=== PATIENT | female | born 1970 | race Caucasian/White ===

== ENCOUNTER → 2016-07-18 | Outpatient (CLI) | payer MEDICARE, MEDICAID ==
[~2016-07-18] VITALS: Ht 167.6 cm; Wt 93.0 kg
[~2016-07-18] MED LIST: ALBUTEROL0.09 MG/A1 IH; AMITRIPTYLINE H75 M1 PO; AMITRIPTYLINE100 MG PO; ATARAX50 MG PO; CALAN120 MG PO; CARNITINE250 MG PO; CENTRUM1 TAB PO; CLARITIN 1010 MG/TAB PO; CLONAZEPAM1 MG PO; COLACE 100100 MG/CAP PO; COMBIVENT INH14.7 GM IH; CRESTOR 10MG10 MG PO; CYMBALTA; DARVOCET N; DESYREL 50MG50 MG PO; DILAUDID 4MG TAB4 MG PO; DULERA1 AR1 IH; DULERA1 ARO IH; EFFEXOR-XR150 MG PO; ELAVIL100 MG PO; EPA FISH OIL1000 MG PO; ESCITALOPRAM; ESTROGENS0.3 MG PO; ESTROVEN; ETHOSUXIMIDE PO; ETHOSUXIMIDE250 MG PO; FLEXERIL; GINGER ROOT EX250 MG PO; GLUCOPHAGE500 MG/TAB PO; HUMALOG100 U/ML SC; HUMALOG100 U/ML SQ; HYDROCODONE/APAP; HYDROMORPHONE HY8 MG; IMITREX ST6 MG/0.5 M SC; IMITREX100 MG PO; INDERAL 20MG20 MG PO; KLONOPIN 1MG1 MG PO; KLONOPIN1 MG PO; LAMICTAL; LAMICTAL150 MG PO; LAMOTRIGINE150 MG PO; LEVEMIR SQ; LEVEMIR100 U/ML SC; LEVEMIR100 U/ML SQ; LIPITOR 40MG TA40 MG PO; LOPID 600M600 MG/TAB PO; LORTAB 7.5/5001 TAB PO; MASON NATURAL500 MG PO; MELOXICAM; MOBIC 7.5MG7.5 MG PO; MORPHINE ER; MS CONTIN100 MG PO; MULTIPLE VITAMI1 CAP PO; MULTIPLE VITAMI1 TAB PO; NATURAL E400 IU PO; NATURE'S BLE1000 MCG PO; NORCO 325 MG-51 TAB PO; NORCOELIX PO; NORTRIPTYLINE25 M1 PO; NOVLOG SC; NOVLOG SQ; PERCOCET 650 MG1 TAB PO; PHENERGAN 25 TA25 MG; PHENERGAN 25 TA25 MG PO; PHENERGAN W/CO120 ML PO; PHENERGAN25 MG RC; PREMARIN 0.60.625 MG PO; PRIL40 PO; PROAIR HFA0.09 MG/AC IH; PROCHLORPERAZIN10 MG PO; PROPOXYPHENE HC65 MG PO; PROPRANOLOL HCL40 MG PO; PROVENTIL0.09 MG/A1 IH; REGLAN 10MG10 MG/TAB PO; REMERON 15M15 MG/TA1 PO; SEROQUEL25 MG PO; SINGULAIR 110 MG/TAB PO; TORADOL 10MG TA10 MG PO; TRICOR145 MG PO; VERAPAMIL 440 MG/TAB PO; VERELAN120 MG PO; VITAMIN D 50,1.25 MG PO; WELLBUTRIN XL150 MG PO; XANAX0.25 MG PO; ZANAFLEX 4MG TAB4 MG PO; ZITHROMAX Z PA250 MG PO; ZOFRAN 4MG T4 MG/TAB PO; ZOFRAN4 MG PO; ZOFRAN8 MG PO; [UNRECOGNIZED DRUG - OTHER] PO
[2016-07-18 13:59] VITALS: BP 122/80; PULSE 86
[2016-07-18 14:57] VITALS: BP 122/80; PULSE 86
== END ==
LOC: LIGHT 10-27 15:03
DX: Z98.84 Bariatric surgery status (principal); E11.65 Type 2 diabetes mellitus with hyperglycemia; E66.8 Other obesity; Z68.31 Body mass index [BMI] 31.0-31.9, adult

== ENCOUNTER → 2016-08-30 | Outpatient (CLI) | payer MEDICARE, MEDICAID ==
[~2016-08-30] VITALS: Ht 167.6 cm; Wt 92.3 kg
[2016-08-30 14:00] VITALS: BP 117/63; PULSE 85
== END ==
LOC: LIGHT 13:37
DX: Z98.84 Bariatric surgery status (principal); Z68.32 Body mass index [BMI] 32.0-32.9, adult

== ENCOUNTER → 2016-09-27 | Outpatient (CLI) | payer MEDICARE, MEDICAID ==
[~2016-09-27] VITALS: Ht 167.6 cm; Wt 92.1 kg
[2016-09-27 13:02] VITALS: BP 116/64; PULSE 92
== END ==
LOC: LIGHT 13:00
DX: Z98.84 Bariatric surgery status (principal); Z68.32 Body mass index [BMI] 32.0-32.9, adult; E11.9 Type 2 diabetes mellitus without complications

== ENCOUNTER → 2016-11-01 | Outpatient (CLI) | payer MEDICARE, MEDICAID ==
[~2016-11-01] VITALS: Ht 167.6 cm; Wt 90.7 kg
[2016-11-01 12:59] VITALS: BP 109/67; PULSE 89
== END ==
LOC: LIGHT 09:44
DX: Z98.84 Bariatric surgery status (principal)

== ENCOUNTER → 2016-11-11 | Outpatient (CLI) | payer MEDICARE, MEDICAID | LOC: BHSO 15:30 | DX: F31.73 Bipolar disorder, in partial remission, most recent episode manic (principal) ==

== ENCOUNTER → 2017-01-13 | Outpatient (CLI) | payer MEDICARE, MEDICAID | LOC: MC.RAD 10:18 | DX: N63 Unspecified lump in breast (principal) ==

== ENCOUNTER → 2017-04-03 | Outpatient (CLI) | payer MEDICARE, MEDICAID | LOC: COL.PUL 11:04 | DX: J45.909 Unspecified asthma, uncomplicated (principal); Z87.891 Personal history of nicotine dependence ==

== ENCOUNTER → 2017-05-26 | Outpatient (CLI) | payer MEDICARE, MEDICAID | LOC: BHSO 14:57 | DX: F31.73 Bipolar disorder, in partial remission, most recent episode manic (principal) ==

== ENCOUNTER → 2017-07-21 | Outpatient (CLI) | payer MEDICARE, MEDICAID | LOC: BHSO 14:31 | DX: F31.73 Bipolar disorder, in partial remission, most recent episode manic (principal) | CPT/HCPCS: G0463 ==

== ENCOUNTER → 2017-12-08 | Outpatient (CLI) | payer MEDICARE, MEDICAID | LOC: BHSO 15:16 | DX: F31.81 Bipolar II disorder (principal) | CPT/HCPCS: G0463 ==

== ENCOUNTER → 2018-02-06 | Outpatient (CLI) | payer MEDICARE, MEDICAID | LOC: BHSO 11:19 | DX: F31.81 Bipolar II disorder (principal) | CPT/HCPCS: G0463 ==

== ENCOUNTER → 2018-05-01 | Outpatient (CLI) | payer MEDICARE, MEDICAID | LOC: BHSO 11:18 | DX: F43.10 Post-traumatic stress disorder, unspecified (principal) | CPT/HCPCS: G0463 ==

== ENCOUNTER 2018-05-06 12:24 | Emergency (ER) | payer MEDICARE, MEDICAID ==
[2005-06-07 16:18] VITALS: BP 158/85
[~2018-05-06] VITALS: Ht 167.6 cm; Wt 91.4 kg
[2018-05-06 12:34] VITALS: TEMP 97.9
[2018-05-06 13:20] LABS: BASO % 0.3 % (0.0-2.0); EOS # 0.2 (0.0-0.7); EOS % 1.9 % (0-4.0); GRAN # 6.6 (1.4-6.5); GRAN % 66.3 % (42.2-75.2); HEMATOCRIT 42.2 % (37.0-47.0); HEMOGLOBIN 14.5 g/dl (12.5-16.0); LYMPH # 2.6 (1.2-3.4); LYMPH % 25.7 % (20.0-51.0); MEAN CELL VOLUME 89 fl (80.0-100.0); MEAN CORPUSCULAR HEMOGLOBIN 31 pg (27.0-31.0); MEAN CORPUSCULAR HGB CONC 34 g/dl (33.0-37.0); MEAN PLATELET VOLUME 10.8 fl (7.4-10.4); MONO # 0.5 (0.1-0.6); MONO % 5.3 % (1.7-9.3); PLATELET COUNT 310 K/mm3 (130-400); RED BLOOD COUNT 4.76 M/mm3 (4.10-5.30); REDCELL DISTRIBUTION WIDTH-CV 11.8 % (11.5-14.5)
[2018-05-06 13:31] LABS: ALBUMIN 4.4 gm/dL (3.5-5.0); BILIRUBIN,TOTAL 0.3 mg/dL (0.0-1.0); CALCIUM 9.7 mg/dL (8.4-10.2); CREATININE, serum 0.51 mg/dL (0.52-1.25); POTASSIUM 4.3 mmol/L (3.4-5.0); TOTAL PROTEIN 7.6 gm/dL (6.4-8.2)
[2018-05-06] MEDS ORDERED: CARAFATE 1GM1 G PO (14:33)
[2018-05-06 16:09] VITALS: BP 120/84; PULSE 88
== END 2018-05-06 16:20 | disposition home or self-care (01) ==
LOC: COL.ER 12:24
PROVIDERS: Emergency Medicine
DX: R11.2 Nausea with vomiting, unspecified (principal); R10.9 Unspecified abdominal pain
CPT/HCPCS: C9113; J1630; J2550; J3010; J7030; Q9967

== ENCOUNTER 2018-05-16 09:53 | Day surgery (SDC) | payer MEDICARE, MEDICAID ==
[2005-06-07 16:18] VITALS: BP 158/85
[~2018-05-16] VITALS: Ht 167.6 cm; Wt 94.8 kg
[~2018-05-16 09:53] MED LIST changes: +CARAFATE 1GM1 G PO
[2018-05-16 10:45] VITALS: BP 115/84; PULSE 88; TEMP 97.4
[2018-05-16] MEDS ORDERED: BIOTIN10000 MC1 PO (10:52)
[2018-05-16] MEDS ORDERED: CARAFATE 1GM1 G PO (11:00)
[2018-05-16] MEDS ORDERED: CALAN80 MG PO (11:01)
[2018-05-16] MEDS ORDERED: FIORICET 325 MG1 TA1 PO (11:01)
[2018-05-16 12:00] VITALS: BP 115/81; PULSE 89; TEMP 97.5
[2018-05-16 12:15] VITALS: BP 114/80; PULSE 84
[2018-05-16 12:30] VITALS: BP 103/84; PULSE 91
== END 2018-05-16 12:40 | disposition home or self-care (01) ==
LOC: SDCO 09:53
DX: K25.9 Gastric ulcer, unspecified as acute or chronic, without hemorrhage or perforation (principal); Z98.84 Bariatric surgery status; I10 Essential (primary) hypertension; E78.5 Hyperlipidemia, unspecified; G47.00 Insomnia, unspecified; F41.9 Anxiety disorder, unspecified; F43.10 Post-traumatic stress disorder, unspecified; R73.03 Prediabetes; F31.9 Bipolar disorder, unspecified; F32.9 Major depressive disorder, single episode, unspecified; G43.909 Migraine, unspecified, not intractable, without status migrainosus
CPT/HCPCS: J2704

== ENCOUNTER → 2018-05-31 | Outpatient (CLI) | payer MEDICARE, MEDICAID ==
[~2018-05-31] MED LIST changes: +BIOTIN10000 MC1 PO; +CALAN80 MG PO; +FIORICET 325 MG1 TA1 PO
== END ==
LOC: MC.RAD 10:54
DX: Z12.31 Encounter for screening mammogram for malignant neoplasm of breast (principal)

== ENCOUNTER → 2018-11-09 | Outpatient (CLI) | payer MEDICARE, MEDICAID | LOC: BHSO 11:20 | DX: F43.10 Post-traumatic stress disorder, unspecified (principal) | CPT/HCPCS: G0463 ==

== ENCOUNTER 2019-06-29 18:28 | Emergency (ER) | payer MEDICARE, MEDICAID ==
[2005-06-07 16:18] VITALS: BP 158/85
[~2019-06-29] VITALS: Ht 165.1 cm; Wt 97.7 kg
[2019-06-29 18:38] VITALS: BP 108/71; TEMP 97.9
[2019-06-29 19:22] LABS: BASO % 0.3 % (0.0-2.0); EOS # 0.1 (0.0-0.7); EOS % 0.6 % (0-4.0); GRAN # 8.6 (1.4-6.5); GRAN % 74.4 % (42.2-75.2); HEMATOCRIT 40.2 % (37.0-47.0); HEMOGLOBIN 12.7 g/dl (12.5-16.0); LYMPH # 2.3 (1.2-3.4); LYMPH % 20.2 % (20.0-51.0); MEAN CELL VOLUME 86 fl (80.0-100.0); MEAN CORPUSCULAR HEMOGLOBIN 27 pg (27.0-31.0); MEAN CORPUSCULAR HGB CONC 32 g/dl (33.0-37.0); MEAN PLATELET VOLUME 10.4 fl (7.4-10.4); MONO # 0.5 (0.1-0.6); MONO % 4.1 % (1.7-9.3); PLATELET COUNT 293 K/mm3 (130-400); RED BLOOD COUNT 4.67 M/mm3 (4.10-5.30); REDCELL DISTRIBUTION WIDTH-CV 15.1 % (11.5-14.5)
[2019-06-29 19:34] LABS: ALBUMIN 4.7 gm/dL (3.5-5.0); BILIRUBIN,TOTAL 0.2 mg/dL (0.0-1.0); CALCIUM 9.9 mg/dL (8.4-10.2); CREATININE, serum 0.78 (0.52-1.25); POTASSIUM 4.6 mmol/L (3.4-5.0); TOTAL PROTEIN 8.3 gm/dL (6.4-8.2)
[2019-06-29 20:49] LABS: COLLECTION METHOD CLEAN CATCH
[2019-06-29 21:01] LABS: PH 6 (5-8); URINE APPEARANCE Hazy; URINE BACTERIA Rare /hpf; URINE BILIRUBIN Negative (NEGATIVE); URINE BLOOD Negative (NEGATIVE); URINE COLOR Yellow; URINE GLUCOSE Negative (NEGATIVE); URINE KETONE Negative (NEGATIVE); URINE LEUKOCYTE ESTERASE Trace (NEGATIVE); URINE NITRATE Negative (NEGATIVE); URINE PROTEIN(semi-quant) Negative (NEGATIVE); URINE RBC 0-2 /hpf; URINE UROBILINOGEN Negative (NEGATIVE)
[2019-06-29 22:35] VITALS: PULSE 80
[2019-06-29] MEDS ORDERED: COMPAZINE 110 MG/TAB PO (22:37)
== END 2019-06-29 22:43 | disposition home or self-care (01) ==
LOC: COL.ER 18:28
PROVIDERS: Emergency Medicine
DX: G43.909 Migraine, unspecified, not intractable, without status migrainosus (principal); N39.0 Urinary tract infection, site not specified; G31.84 Mild cognitive impairment of uncertain or unknown etiology; G40.909 Epilepsy, unspecified, not intractable, without status epilepticus; Z87.891 Personal history of nicotine dependence
CPT/HCPCS: J0780; J1200; J1630; J2550; J3475; J7030

== ENCOUNTER 2019-12-08 18:12 | Inpatient (IN) | payer MEDICARE, MEDICAID ==
[~2019-12-08] VITALS: Ht 165.1 cm; Wt 88.4 kg
[~2019-12-08 18:12] MED LIST changes: +COMPAZINE 110 MG/TAB PO
[2019-12-08 19:13] LABS: HEMOGLOBIN 10.8 g/dl (12.5-16.0); MEAN CELL VOLUME 84 fl (80.0-100.0); MEAN CORPUSCULAR HEMOGLOBIN 26 pg (27.0-31.0); MEAN CORPUSCULAR HGB CONC 31 g/dl (33.0-37.0); MEAN PLATELET VOLUME 10.6 fl (7.4-10.4); PLATELET COUNT 227 K/mm3 (130-400); RED BLOOD COUNT 4.19 M/mm3 (4.10-5.30); REDCELL DISTRIBUTION WIDTH-CV 15.7 % (11.5-14.5)
[2019-12-08 19:16] LABS: HEMATOCRIT 35.1 % (37.0-47.0)
[2019-12-08 19:28] LABS: ALBUMIN 3.6 gm/dL (3.5-5.0); BILIRUBIN,TOTAL 0.7 mg/dL (0.0-1.0); CALCIUM 9.1 mg/dL (8.4-10.2); CREATININE, serum 0.66 (0.52-1.25); POTASSIUM 3.9 mmol/L (3.4-5.0); TOTAL PROTEIN 6.9 gm/dL (6.4-8.2)
[2019-12-08 19:32] LABS: BAND 11 % (0-10); LYMPHOCYTE 3 % (20.0-51.0); NEUTROPHILS 85 % (42.0-75.2); PLATELET ESTIMATE NORMAL (NORMAL)
[2019-12-08 19:33] LABS: ANISOCYTOSIS 1+
[2019-12-08] MEDS ORDERED: TESSALON P100 MG/CAP PO (20:35)
[2019-12-08] MEDS ORDERED: ROBITUSSIN A-C S1 M1 PO (20:36)
[2019-12-08] MEDS ORDERED: ESTRACE2 MG PO (20:38)
[2019-12-08] MEDS ORDERED: HALDOL 5MG T5 MG/TAB (20:39)
[2019-12-08] MEDS ORDERED: ATARAX50 MG PO (20:40)
[2019-12-08] MEDS ORDERED: NAMENDA 10MG TA10 MG PO (20:42)
[2019-12-08] MEDS ORDERED: SINGULAIR 110 MG/TAB (20:42)
[2019-12-08] MEDS ORDERED: MINIPRESS2 MG PO (20:44)
[2019-12-08 21:12] LABS: COLLECTION METHOD CLEAN CATCH
[2019-12-08 21:22] LABS: PH 6 (5-8); SQUAMOUS EPITHELIAL 0-2 /hpf; URINE APPEARANCE Clear; URINE BACTERIA Rare /hpf; URINE BILIRUBIN Negative (NEGATIVE); URINE BLOOD Negative (NEGATIVE); URINE COLOR Straw; URINE GLUCOSE Negative (NEGATIVE); URINE KETONE Negative (NEGATIVE); URINE LEUKOCYTE ESTERASE Negative (NEGATIVE); URINE NITRATE Negative (NEGATIVE); URINE PROTEIN(semi-quant) Negative (NEGATIVE); URINE RBC 0-2 /hpf; URINE UROBILINOGEN Negative (NEGATIVE)
[2019-12-08 21:50] LABS: INR 1.1 (0.8-3.0); PROTHROMBIN TIME 12.4 SECONDS (9.7-12.8)
[2019-12-08 21:57] LABS: C-REACTIVE PROTEIN 7.5 mg/dL (0.0-0.9); CREATINE KINASE 57 U/L (30-135); LACTATE DEHYDROGENASE 1038 U/L (313-618); MAGNESIUM 1.7 mg/dL (1.6-2.3)
[2019-12-08 22:08] LABS: TROPONIN-I < 0.012 ng/mL (0.000-0.035)
[2019-12-08] MEDS ORDERED: SENNA-LAX8.6 MG PO (23:06)
[2019-12-08 23:25] VITALS: BP 128/85; PULSE 120; TEMP 98.8
--- NOTE | 2019-12-08 23:30 | NUR ---
Arrived to the unit via stretcher; alert and oriented. Reporting some shortness of breath, but in no distress. Able to ambulate to toilet with stand by assist only. Will continue to monitor.
[2019-12-09] VITALS (936 sets, daily range): BP systolic 104–138; BP diastolic 75–90; PULSE 97–134; TEMP 97.7–98.8; O2SAT 65–100
[2019-12-09] MEDS ORDERED: AMBIEN 10MG10 MG PO
[2019-12-09] MEDS ORDERED: EFFEXOR-XR150 MG PO (00:02)
[2019-12-09] MEDS ORDERED: VRAYLAR1.5 MG PO (00:34)
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
[2019-12-09 01:40] LABS: ARTERIAL BLD GAS O2 SATURATION 95.8 % (92-100); ARTERIAL BLD GAS TCO2 CT 28.1; ARTERIAL BLOOD GAS BASE EXCESS 2.2 (-2-2); ARTERIAL BLOOD GAS HCO3 26.8 meq/L (22-26); ARTERIAL BLOOD GAS PCO2 41.5 mmHg (35-45); ARTERIAL BLOOD GAS PO2 78.5 mmHg (80-100); ARTERIAL BLOOD GAS pH 7.43 (7.35-7.45)
--- NOTE | 2019-12-09 01:45 | NUR ---
Patient left unit for chest CT; attached to all monitors. Tolerated procedure well.
--- NOTE | 2019-12-09 02:36 | NUR ---
Updated hospitalist on patient status. Reported increasing 02 to 8L HF. Rikylty 90-92%. Patient tachycardic at 115, however, patient reported to this nurse that she is chronically tachycardic in the 120's. Patient reports that she is in no distress and appears comfortable in bed. Will continue to monitor.
[2019-12-09] MEDS ORDERED: RIOMET500 MG/5 M PO (03:47)
[2019-12-09] MEDS ORDERED: PHENERGAN 25 TA25 MG PO (03:48)
[2019-12-09] MEDS ORDERED: LYRICA 100MG C100 M1 PO (03:49)
--- NOTE | 2019-12-09 05:03 | NUR ---
Entered room to check on patient; reports feeling ok. No increase of shortness of breath and in no distress. Just reports that she "can't stop coughing. Has prn cough lozenges ordered.
[2019-12-09 05:15] LABS: BASO % 0.2 % (0.0-2.0); EOS # 0.1 (0.0-0.7); EOS % 0.5 % (0-4.0); GRAN # 9.9 (1.4-6.5); GRAN % 88.5 % (42.2-75.2); HEMOGLOBIN 10.1 g/dl (12.5-16.0); LYMPH # 0.9 (1.2-3.4); LYMPH % 7.6 % (20.0-51.0); MEAN CELL VOLUME 85 fl (80.0-100.0); MEAN CORPUSCULAR HEMOGLOBIN 26 pg (27.0-31.0); MEAN CORPUSCULAR HGB CONC 30 g/dl (33.0-37.0); MEAN PLATELET VOLUME 10.9 fl (7.4-10.4); MONO # 0.3 (0.1-0.6); MONO % 2.5 % (1.7-9.3); PLATELET COUNT 211 K/mm3 (130-400); RED BLOOD COUNT 3.96 M/mm3 (4.10-5.30); REDCELL DISTRIBUTION WIDTH-CV 15.8 % (11.5-14.5)
[2019-12-09 05:22] LABS: HEMATOCRIT 33.5 % (37.0-47.0)
[2019-12-09 05:25] LABS: ALBUMIN 3.2 gm/dL (3.5-5.0); BILIRUBIN,TOTAL 0.5 mg/dL (0.0-1.0); CALCIUM 8.5 mg/dL (8.4-10.2); CREATININE, serum 0.5 (0.52-1.25); POTASSIUM 4.2 mmol/L (3.4-5.0); TOTAL PROTEIN 6.3 gm/dL (6.4-8.2)
--- NOTE | 2019-12-09 07:20 | NUR ---
Report received from BALTAZAR Paul. Patient is resting comfortably in bed. Call light and bedside table are within reach. Will continue to monitor patient throughout shift.
--- NOTE | 2019-12-09 08:00 | NUR ---
This nurse was given a verbal order per Dr. Chahal to decrease NS rate from 75 ml/hr to 25 ml/hr.
--- NOTE | 2019-12-09 14:34 | NUR ---
Track Moving Machine Operator contacted patient on her room phone as she is in contact isolation pending COVID test. Patient lives in [place] with her adopted daughter, Kristen. Patient sees Dr. Chahal for primary care and has medications delivered to her home by [facility] in [place]. Patient states she cannot drive and many of her appointments lately have been telehealth. Patient denies any DME usage and reports independence with ADLS. Patient does not have Advance Directives and identifies her next of kin as her daughter, Thelma (ph#[phone]). SW attempted to contacted Thelma but was unable to leave a message. SW will continue to follow for discharge needs.
--- NOTE | 2019-12-09 19:25 | NUR ---
Report given to BALTAZAR Olivas. Patient is resting in bed. Call light and bedside table are within reach.
--- NOTE | 2019-12-09 22:30 | NUR ---
Patient reporting some increased shortness of breath after coughing "spell". Administered PRN halls. Assisted to the bathroom and bed bath with clean gown. Patient appreciative and reported feeling better after the bath. Denies any other needs at this time. Will continue to monitor.
[2019-12-10] VITALS (892 sets, daily range): BP systolic 92–120; BP diastolic 57–83; PULSE 70–116; TEMP 98.3–99.1; O2SAT 80–100
[2019-12-10 05:06] LABS: ARTERIAL BLD GAS O2 SATURATION 97.2 % (92-100); ARTERIAL BLD GAS TCO2 CT 26.3; ARTERIAL BLOOD GAS BASE EXCESS 0.9 (-2-2); ARTERIAL BLOOD GAS HCO3 25.2 meq/L (22-26); ARTERIAL BLOOD GAS PCO2 38.5 mmHg (35-45); ARTERIAL BLOOD GAS PO2 94.6 mmHg (80-100); ARTERIAL BLOOD GAS pH 7.43 (7.35-7.45)
[2019-12-10 06:35] LABS: BASO % 0.3 % (0.0-2.0); EOS # 0.1 (0.0-0.7); EOS % 1.2 % (0-4.0); GRAN # 6.4 (1.4-6.5); GRAN % 82.4 % (42.2-75.2); LYMPH % 12.5 % (20.0-51.0); MEAN CELL VOLUME 84 fl (80.0-100.0); MEAN CORPUSCULAR HGB CONC 31 g/dl (33.0-37.0); MEAN PLATELET VOLUME 10.7 fl (7.4-10.4); MONO # 0.3 (0.1-0.6); MONO % 3.2 % (1.7-9.3); PLATELET COUNT 204 K/mm3 (130-400); RED BLOOD COUNT 3.27 M/mm3 (4.10-5.30); REDCELL DISTRIBUTION WIDTH-CV 15.5 % (11.5-14.5)
[2019-12-10 06:46] LABS: HEMATOCRIT 27.3 % (37.0-47.0); HEMOGLOBIN 8.4 g/dl (12.5-16.0); MEAN CORPUSCULAR HEMOGLOBIN 26 pg (27.0-31.0)
[2019-12-10 06:51] LABS: ALBUMIN 2.6 gm/dL (3.5-5.0); BILIRUBIN,TOTAL 0.4 mg/dL (0.0-1.0); CALCIUM 7.7 mg/dL (8.4-10.2); CREATININE, serum 0.38 (0.52-1.25); POTASSIUM 3.2 mmol/L (3.4-5.0); TOTAL PROTEIN 5.3 gm/dL (6.4-8.2)
--- NOTE | 2019-12-10 20:00 | NUR ---
Assisted with evening cares. Patient alert and oriented. Mild shortness of breath but in no distress. VS within normal limits. Will continue to monitor.
--- NOTE | 2019-12-10 22:07 | NUR ---
TOLERATED PER PT TITRATING AIRVO DOWN TO WEAN PT OFF O2. PT WENT FROM 50LPM TO 40 AND WENT FROM 80% FI02 TO 63% FI02. PT SATURATIONS ARE REMAINING STABLE TO THE MID TO HIGH 90'S. WILL CONTINUE TO TITRATE O2 THROUGHOUT THE NIGHT AND CONTINUE TO MONITOR AND ASSESS PT THROUGHOUT THE NIGHT. PT IS RESTING COMFORTABLY IN BED AND IS IN NO DISTRESS.
[2019-12-11] VITALS (918 sets, daily range): BP systolic 106–124; BP diastolic 66–89; PULSE 28–96; TEMP 97.7–98.5; O2SAT 70–100
--- NOTE | 2019-12-11 00:20 | NUR ---
02 ranging from 88-90% on Airvo; RT notified. Will come to bedside to assess and adjust airvo as needed.
--- NOTE | 2019-12-11 02:15 | NUR ---
Awake and resting in bed; denies any concerns or complaints at this time.
[2019-12-11 06:25] LABS: MEAN CELL VOLUME 85 fl (80.0-100.0); MEAN CORPUSCULAR HGB CONC 31 g/dl (33.0-37.0); MEAN PLATELET VOLUME 10.6 fl (7.4-10.4); PLATELET COUNT 220 K/mm3 (130-400); RED BLOOD COUNT 3.68 M/mm3 (4.10-5.30); REDCELL DISTRIBUTION WIDTH-CV 15.3 % (11.5-14.5)
[2019-12-11 06:28] LABS: HEMATOCRIT 31.1 % (37.0-47.0); HEMOGLOBIN 9.5 g/dl (12.5-16.0); MEAN CORPUSCULAR HEMOGLOBIN 26 pg (27.0-31.0)
[2019-12-11 06:38] LABS: ALBUMIN 3.1 gm/dL (3.5-5.0); BILIRUBIN,TOTAL 0.4 mg/dL (0.0-1.0); CALCIUM 9.1 mg/dL (8.4-10.2); CREATININE, serum 0.39 (0.52-1.25); POTASSIUM 4.3 mmol/L (3.4-5.0); TOTAL PROTEIN 6.2 gm/dL (6.4-8.2)
[2019-12-11 07:10] LABS: LYMPHOCYTE 2 % (20.0-51.0)
[2019-12-11 07:11] LABS: HYPOCHROMIA 2+; PLATELET ESTIMATE NORMAL (NORMAL); TOXIC GRANULATION PRESENT
[2019-12-11 07:14] LABS: BAND 0 % (0-10); NEUTROPHILS 95 % (42.0-75.2)
[2019-12-11 07:21] LABS: ARTERIAL BLD GAS O2 SATURATION 98.9 % (92-100); ARTERIAL BLD GAS TCO2 CT 23.8; ARTERIAL BLOOD GAS BASE EXCESS -2.9 (-2-2); ARTERIAL BLOOD GAS HCO3 22.5 meq/L (22-26); ARTERIAL BLOOD GAS PCO2 41.8 mmHg (35-45); ARTERIAL BLOOD GAS PO2 154.1 mmHg (80-100); ARTERIAL BLOOD GAS pH 7.35 (7.35-7.45)
--- NOTE | 2019-12-11 13:25 | NUR ---
Char Conveyor Tender met with patient to review discharge plan. Patient states she still plans to return home upon discharge. Patient is hoping to move up to the med/surg floor tomorrow. SW contacted patient's daughter, Thelma and left a message. SW also contacted patient's other daughter, Lauren (ph#[phone]) to provide update and contact information. Lauren agrees with discharge home for patient. GAY will continue to monitor for discharge needs.
--- NOTE | 2019-12-11 19:05 | NUR ---
RECEIVED REPORT FROM BALTAZAR ESPOSITO. PT SLEEPING IN BED ON RA. VSS. CALL LIGHT WITHIN REACH.
--- NOTE | 2019-12-11 19:10 | NUR ---
RECEIVED REPORT FROM BALTAZAR QUINTERO. PT SITTING UP IN BED ON AIRVO, VSS. CALL LIGHT WITHIN REACH. NO ACUTE S/S OF RESP DISTRESS NOTED AT THIS TIME.
[2019-12-12] VITALS (467 sets, daily range): BP systolic 103–125; BP diastolic 63–88; PULSE 56–100; TEMP 97.5–98.5; O2SAT 91–100
[2019-12-12 05:15] LABS: GRAN # 7.3 (1.4-6.5); GRAN % 89.6 % (42.2-75.2); LYMPH # 0.5 (1.2-3.4); LYMPH % 6.7 % (20.0-51.0); MEAN CELL VOLUME 85 fl (80.0-100.0); MEAN CORPUSCULAR HGB CONC 31 g/dl (33.0-37.0); MEAN PLATELET VOLUME 10.6 fl (7.4-10.4); MONO # 0.2 (0.1-0.6); MONO % 2.7 % (1.7-9.3); PLATELET COUNT 249 K/mm3 (130-400); RED BLOOD COUNT 3.47 M/mm3 (4.10-5.30); REDCELL DISTRIBUTION WIDTH-CV 15.6 % (11.5-14.5)
[2019-12-12 05:18] LABS: HEMATOCRIT 29.4 % (37.0-47.0); HEMOGLOBIN 9.2 g/dl (12.5-16.0); MEAN CORPUSCULAR HEMOGLOBIN 27 pg (27.0-31.0)
[2019-12-12 05:25] LABS: BILIRUBIN,TOTAL 0.4 mg/dL (0.0-1.0); CALCIUM 9.2 mg/dL (8.4-10.2); CREATININE, serum 0.39 (0.52-1.25); TOTAL PROTEIN 6.1 gm/dL (6.4-8.2)
[2019-12-12 05:38] LABS: ARTERIAL BLD GAS O2 SATURATION 95.6 % (92-100); ARTERIAL BLD GAS TCO2 CT 31.9; ARTERIAL BLOOD GAS BASE EXCESS 5.7 (-2-2); ARTERIAL BLOOD GAS HCO3 30.5 meq/L (22-26); ARTERIAL BLOOD GAS PCO2 45.4 mmHg (35-45); ARTERIAL BLOOD GAS PO2 80.2 mmHg (80-100); ARTERIAL BLOOD GAS pH 7.45 (7.35-7.45)
--- NOTE | 2019-12-12 11:43 | NUR ---
Job Boss attended clinical rounds with the team and patient to move to the medical floor today. Hospitalist to order PT/OT for patient. SW to continue to follow.
--- NOTE | 2019-12-12 16:20 | NUR ---
PT ARRIVED TO FLOOR, SETTLED IN ROOM
--- NOTE | 2019-12-12 16:37 | NUR ---
Report called to medical. Pt transferred to Medical room 315 on 4L NC SPO2 96% Airvo transported to room by RT. Tolerated transfer without issue.
--- NOTE | 2019-12-12 16:39 | NUR ---
PT STATES THAT PAIN HAS BEEN HELPED GREATLY WITH NORCO ADMINISTRATION. STILL RATES PAIN 7/10 BUT SAYS SHE NORMALLY RUNS AROUND A 9 OR 10/10 CHRONICALLY.
--- NOTE | 2019-12-12 17:29 | NUR ---
PT CURRENTLY SITTING ON BED WATCHING TV. PT PLEASANT, AOX4, ZOSYN RUNNING THROUGH [facility]. PT EXPRESSESS EXCITEMENT OVER A SHOWER LATER TONIGHT. PT STATES PAIN IS MUCH BETTER AND AT A 7/10 CURRENTLY. PT HAS SCATTERED ABRASIONS ON EXTREMITIES. BRUISING BEHIND RIGHT RIBS, BUMP ON BACK OF HEAD, PT CURRENTLY ON 4L HIGH FLOW NC. TELEMETRY HAS BEEN DISCONTINUED. LUNG SOUNDS COARSE THROUGHOUT. HR REGULAR, BS PRESENT, PULSES STRONG RADIALLY AND PEDALLY. NO OTHER NEEDS AT THIS TIME.
--- NOTE | 2019-12-12 20:40 | NUR ---
Resting in bed. Assessment complete. Lungs clear. Heart sounds normal. Bowels active x4. Pulses present throughout. Bilateral lower extremity edema +1. Bruising to right trunk, bilateral arms, and bilateral legs with abrasions to legs. Reporting pain 9/10. Provided with PRN norco at this time. Denies other needs. Call light in reach.
--- NOTE | 2019-12-12 23:38 | NUR ---
Resting in bed. Denied needs. Reports 2/10 pain. Call light in reach.
--- NOTE | 2019-12-13 02:19 | NUR ---
Reports 02/02 headache. Provided with PRN norco at this time. Denies other needs.
[2019-12-13 04:25] VITALS: BP 112/71; PULSE 63; TEMP 97.1
--- NOTE | 2019-12-13 06:08 | NUR ---
Patient required x2 doses of norco for pain control throughout night. Otherwise uneventful night. Resting in bed this AM. Call light in reach.
--- NOTE | 2019-12-13 06:40 | NUR ---
awake resting in bed, bedside shift report received from BALTAZAR Mcneil
--- NOTE | 2019-12-13 06:57 | NUR ---
Report given to BALTAZAR Baker
[2019-12-13 07:13] VITALS: BP 100/51; PULSE 73; TEMP 97.6
[2019-12-13 07:44] LABS: GRAN # 5.3 (1.4-6.5); HEMATOCRIT 30.5 % (37.0-47.0); HEMOGLOBIN 9.2 g/dl (12.5-16.0); LYMPH # 0.6 (1.2-3.4); LYMPH % 9.5 % (20.0-51.0); MEAN CELL VOLUME 85 fl (80.0-100.0); MEAN CORPUSCULAR HEMOGLOBIN 26 pg (27.0-31.0); MEAN CORPUSCULAR HGB CONC 30 g/dl (33.0-37.0); MEAN PLATELET VOLUME 10.8 fl (7.4-10.4); MONO # 0.3 (0.1-0.6); MONO % 4.5 % (1.7-9.3); PLATELET COUNT 250 K/mm3 (130-400); RED BLOOD COUNT 3.57 M/mm3 (4.10-5.30); REDCELL DISTRIBUTION WIDTH-CV 15.5 % (11.5-14.5)
--- NOTE | 2019-12-13 07:45 | NUR ---
C/O pain, medicated with hydrocodone 5mg 2 tabs per patient's request
[2019-12-13 07:57] LABS: ALBUMIN 3.1 gm/dL (3.5-5.0); BILIRUBIN,TOTAL 0.3 mg/dL (0.0-1.0); CALCIUM 8.9 mg/dL (8.4-10.2); CREATININE, serum 0.53 (0.52-1.25); POTASSIUM 3.8 mmol/L (3.4-5.0)
--- NOTE | 2019-12-13 09:00 | NUR ---
sitting up in bed after having had breakfast, states she was hungry this am and had all her breakfast, also had relief of pain from pain pills given earlier, full assessment completed, see maras for further info
--- NOTE | 2019-12-13 09:15 | NUR ---
occupational therapy in to work with patient
--- NOTE | 2019-12-13 10:15 | NUR ---
Dr Saleh and care team in to see patient, O2 at 2L/NC and will continue to try and wean off O2
[2019-12-13 11:39] VITALS: BP 129/78; PULSE 64; TEMP 97.4
--- NOTE | 2019-12-13 12:58 | NUR ---
shift report given to BALTAZAR Huerta
--- NOTE | 2019-12-13 16:13 | NUR ---
SW met with the patient to revisit the discharge plan. The patient does not have any questions or concerns about going home. PT/OT recommend home. There are no additional needs at this time.
[2019-12-13 17:19] VITALS: BP 131/76; PULSE 87; TEMP 98.3
--- NOTE | 2019-12-13 18:05 | NUR ---
Patient sitting up in bed, rating pain in head 8/10. Pain medication requested. A&O. VSS on room air, no reported SOB. IV CDI. No further needs expressed from patient. Call light within reach
[2019-12-13 19:24] VITALS: BP 107/54; PULSE 56; TEMP 98
[2019-12-13 20:51] VITALS: BP 111/71
--- NOTE | 2019-12-13 21:00 | NUR ---
Patient resting in bed. Assessment complete. Lungs clear. Heart sounds normal. Bowels active. Pulses present throughout. Bilateral lower leg edema +1. PICC to right upper arm flushed without complications. Reports 01/02 headache-norco due at 2200. Patient aware. Denies other needs at this time. Call light in reach.
--- NOTE | 2019-12-13 22:14 | NUR ---
Reports 02/02 headache. Provided with PRN norco at patient request. Denies other needs.
[2019-12-14 00:08] VITALS: BP 102/72; PULSE 80; TEMP 98.2
--- NOTE | 2019-12-14 02:04 | NUR ---
Resting in bed asleep. Call light in reach.
[2019-12-14 03:53] VITALS: BP 117/78; PULSE 84; TEMP 97.7
--- NOTE | 2019-12-14 04:04 | NUR ---
Reported 9/10 headache and "lung pain." Lungs clear. Pain does not radiate. Patient 89% on room air. Replaced on o2 at 2 liters. up to 98%. Turned to 1 liter. Maintaining at 96%. Reports chest tightness. Contacted respiratory for PRN albuterol. Will monitor.
--- NOTE | 2019-12-14 05:34 | NUR ---
Patient 86% on room air. Sat up and practiced breathing techniques. Increased to 98%. Patient refusing oxygen at this time. Educated to use IS. Respiratory updated. Will monitor.
--- NOTE | 2019-12-14 06:00 | NUR ---
Patient had oxygen requirements this AM. Obtained PRN albuterol. Educated on IS use. Refusing continous oxygen. Otherwise uneventful night. Will continue to closely monitor.
--- NOTE | 2019-12-14 07:09 | NUR ---
Report given to BALTAZAR Leroy
[2019-12-14 07:35] LABS: EOS % 0.5 % (0-4.0); GRAN # 3.8 (1.4-6.5); LYMPH # 1.8 (1.2-3.4); LYMPH % 29.2 % (20.0-51.0); MEAN CELL VOLUME 85 fl (80.0-100.0); MEAN CORPUSCULAR HGB CONC 30 g/dl (33.0-37.0); MEAN PLATELET VOLUME 10.9 fl (7.4-10.4); MONO # 0.5 (0.1-0.6); MONO % 7.5 % (1.7-9.3); PLATELET COUNT 245 K/mm3 (130-400); RED BLOOD COUNT 3.68 M/mm3 (4.10-5.30); REDCELL DISTRIBUTION WIDTH-CV 15.4 % (11.5-14.5)
[2019-12-14 07:43] LABS: HEMATOCRIT 31.2 % (37.0-47.0); HEMOGLOBIN 9.3 g/dl (12.5-16.0); MEAN CORPUSCULAR HEMOGLOBIN 25 pg (27.0-31.0)
[2019-12-14 08:00] VITALS: BP 121/59; PULSE 82; TEMP 98.8
[2019-12-14 08:04] LABS: CALCIUM 8.4 mg/dL (8.4-10.2); CREATININE, serum 0.53 (0.52-1.25); POTASSIUM 3.3 mmol/L (3.4-5.0)
--- NOTE | 2019-12-14 10:44 | NUR ---
Pt assessment completed and charted. Medications administered per AUG. Pt A&O, independent in room. Pt on room air. DIPIKA PICC in place, red port blood return and flushed. Purple port, difficulty getting blood return. Heart RRR. LLL diminished lung sounds, RLL and UL bilaterally clear. BS active. Pt refused senokot, states she has had BMs. Pt tolerated some breakfast this morning and then had three episodes of vomiting. This nurse did not see the emesis. Pt received PRN zofran. Will monitor. Pt states she does have a headache and upper back pain. Received PRN norco per aug as well. Pt requesting to take nap and see if "everything settles down". No further needs expressed.
[2019-12-14 12:00] VITALS: BP 109/71; PULSE 67; TEMP 98.5
--- NOTE | 2019-12-14 12:13 | NUR ---
Pt sleeping upon entry, awakened for noon vitals, states her nausea is gone. No other concerns at this time.
--- NOTE | 2019-12-14 14:14 | NUR ---
Pt assessment completed and charted, alert, oriented, roomair. Meds provided as per MAR. No N/V/D, pain, numbness, tingling, SOB as per pt this time as per pt. Pt looks sleepy and slept most of the morning. No further needs at this time.
[2019-12-14 16:58] VITALS: BP 130/85; PULSE 79; TEMP 98.2
--- NOTE | 2019-12-14 19:10 | NUR ---
Pt requested for pain meds around 1015 and 1615 and provided pain meds as per AUG. Pt slept most of the day. No further request at this time. Exercise OX completed by respiratory. No further needs at this time.
[2019-12-14 19:24] VITALS: BP 123/82; PULSE 67; TEMP 98.5
--- NOTE | 2019-12-14 19:58 | NUR ---
Resting in bed. Assessment complete. Lungs clear. Currently on room air. Heart sounds normal. Bowels active x4. Pulses present throughout. bilateral lower leg edema +1. Bilateral upper and lower leg and back bruising present. PICC to right upper arm flushed without complications. Reports 02/02 in head. [place] due at 2029. Denies other needs at this time. Call light in reach.
--- NOTE | 2019-12-14 21:16 | NUR ---
Reports 8/10 head pain. Provided with PRN cira at patient request. Denies other needs. Call light in reach.
--- NOTE | 2019-12-15 | NUR ---
Resting in bed. Reports 01/02 headache-tolerable at this time. Denies needs. Call light in reach.
[2019-12-15 00:19] VITALS: BP 110/67; PULSE 60; TEMP 98.5
[2019-12-15 04:15] VITALS: BP 111/60; PULSE 59; TEMP 97.6
--- NOTE | 2019-12-15 06:19 | NUR ---
Required x2 doses of norco for pain control throughout night. Otherwise uneventful night. Resting in bed this AM. Call light in reach.
--- NOTE | 2019-12-15 06:55 | NUR ---
Report given to BALTAZAR Leroy
[2019-12-15 07:45] VITALS: BP 130/67; PULSE 63; TEMP 97.6
[2019-12-15] MEDS ORDERED: NORCO 325 MG-51 TAB PO (10:24)
[2019-12-15] MEDS ORDERED: PREDNISONE10 MG PO (10:26)
--- NOTE | 2019-12-15 13:31 | NUR ---
Pt assessment completed and charted, alert, oriented, roomair, independent. Morning meds provided as per AUG. PICC line blood returned, flushed without complications. No N/V/D, numbness, tingling, SOB as per pt.
--- NOTE | 2019-12-15 13:33 | NUR ---
Pt discharge procedure completed and discharge teaching is provided. PICC line taken out by BALTAZAR Garcia. Dressing looks dry, intact. Called her daughter for the ride, pt is getting ready to leave. Wheeled her down to the ER dept.
== END 2019-12-15 13:40 | disposition home or self-care (01) | DRG 871 ==
LOC: COL.ER 18:12 → ICU 20:51 → MEDICAL 12-12 16:35
PROVIDERS: Emergency Medicine; Internal Medicine Pulmonary Disease; Physician Assistant; Student in an Organized Health Care Education/Training Program; ADMIT Hospitalist
PROC: 02HV33Z Insertion of Infusion Device into Superior Vena Cava, Percutaneous Approach (ICD-10-PCS; principal; 2019-12-09)
DX: A41.9 Sepsis, unspecified organism (principal); J96.01 Acute respiratory failure with hypoxia; S32.049A Unspecified fracture of fourth lumbar vertebra, initial encounter for closed fracture; E87.1 Hypo-osmolality and hyponatremia; E87.3 Alkalosis; S27.321A Contusion of lung, unilateral, initial encounter; F32.9 Major depressive disorder, single episode, unspecified; G47.00 Insomnia, unspecified; F41.9 Anxiety disorder, unspecified; E78.5 Hyperlipidemia, unspecified; G40.909 Epilepsy, unspecified, not intractable, without status epilepticus; J45.909 Unspecified asthma, uncomplicated; F43.10 Post-traumatic stress disorder, unspecified; K21.9 Gastro-esophageal reflux disease without esophagitis; I10 Essential (primary) hypertension; F17.210 Nicotine dependence, cigarettes, uncomplicated; Z20.828 Contact with and (suspected) exposure to other viral communicable diseases; D64.9 Anemia, unspecified; R65.20 Severe sepsis without septic shock; R41.81 Age-related cognitive decline; K59.00 Constipation, unspecified; Z90.710 Acquired absence of both cervix and uterus; Z90.89 Acquired absence of other organs; Z87.442 Personal history of urinary calculi; Z79.84 Long term (current) use of oral hypoglycemic drugs
CPT/HCPCS: 99223-AI; 99232-AI; 99233-AI; 99239; A9284; C1751; C1892; J1650; J1815; J1940; J2405; J2543; J2920; J3370; J3480; J7030; J7050; J7512; Q9967

== ENCOUNTER 2020-06-25 22:38 | Emergency (ER) | payer MEDICARE, MEDICAID ==
[2005-06-07 16:18] VITALS: BP 158/85
[~2020-06-25] VITALS: Ht 165.1 cm; Wt 75.0 kg
[~2020-06-25 22:38] MED LIST changes: +AMBIEN 10MG10 MG PO; +ESTRACE2 MG PO; +HALDOL 5MG T5 MG/TAB; +LYRICA 100MG C100 M1 PO; +MINIPRESS2 MG PO; +NAMENDA 10MG TA10 MG PO; +PREDNISONE10 MG PO; +RIOMET500 MG/5 M PO; +ROBITUSSIN A-C S1 M1 PO; +SENNA-LAX8.6 MG PO; +SINGULAIR 110 MG/TAB; +TESSALON P100 MG/CAP PO; +VRAYLAR1.5 MG PO
[2020-06-25 22:41] VITALS: TEMP 98.4
[2020-06-25 23:11] LABS: BASO % 0.1 % (0.0-2.0); EOS % 0.4 % (0-4.0); GRAN # 6.2 (1.4-6.5); GRAN % 84.9 % (42.2-75.2); LYMPH # 0.8 (1.2-3.4); LYMPH % 10.7 % (20.0-51.0); MEAN CELL VOLUME 85 fl (80.0-100.0); MEAN CORPUSCULAR HGB CONC 32 g/dl (33.0-37.0); MEAN PLATELET VOLUME 10.7 fl (7.4-10.4); MONO # 0.3 (0.1-0.6); MONO % 3.4 % (1.7-9.3); PLATELET COUNT 290 K/mm3 (130-400); RED BLOOD COUNT 3.63 M/mm3 (4.10-5.30); REDCELL DISTRIBUTION WIDTH-CV 16.1 % (11.5-14.5)
[2020-06-25 23:12] LABS: HEMOGLOBIN 9.8 g/dl (12.5-16.0); MEAN CORPUSCULAR HEMOGLOBIN 27 pg (27.0-31.0)
[2020-06-25 23:23] LABS: ALBUMIN 4.1 gm/dL (3.5-5.0); BILIRUBIN,TOTAL 0.3 mg/dL (0.0-1.0); CALCIUM 9.4 mg/dL (8.4-10.2); CREATININE, serum 0.69 (0.52-1.25); POTASSIUM 3.6 mmol/L (3.4-5.0)
[2020-06-26] MEDS ORDERED: PROTONIX 40MG T40 MG PO (00:06)
[2020-06-26] MEDS ORDERED: CARAFATE 1GM1 G PO (00:06)
[2020-06-26] MEDS ORDERED: PEPCID 20MG TAB20 MG PO (00:06)
[2020-06-26 00:20] LABS: COLLECTION METHOD CLEAN CATCH
[2020-06-26 00:33] LABS: MUCOUS Present /lpf; PH 6 (5-8); SQUAMOUS EPITHELIAL 0-2 /hpf; URINE APPEARANCE Hazy; URINE BACTERIA Occasional /hpf; URINE BILIRUBIN Negative (NEGATIVE); URINE BLOOD Negative (NEGATIVE); URINE COLOR Yellow; URINE GLUCOSE Negative (NEGATIVE); URINE KETONE 1+ (NEGATIVE); URINE LEUKOCYTE ESTERASE Negative (NEGATIVE); URINE NITRATE Negative (NEGATIVE); URINE PROTEIN(semi-quant) Negative (NEGATIVE); URINE RBC 0-2 /hpf; URINE UROBILINOGEN Negative (NEGATIVE)
[2020-06-26 00:46] VITALS: BP 142/70; PULSE 78
== END 2020-06-26 00:46 | disposition home or self-care (01) ==
LOC: COL.ER 22:38
PROVIDERS: Physician Assistant
DX: K25.9 Gastric ulcer, unspecified as acute or chronic, without hemorrhage or perforation (principal); E11.9 Type 2 diabetes mellitus without complications; I10 Essential (primary) hypertension; K21.9 Gastro-esophageal reflux disease without esophagitis; F43.10 Post-traumatic stress disorder, unspecified; F32.9 Major depressive disorder, single episode, unspecified; F41.9 Anxiety disorder, unspecified; G43.909 Migraine, unspecified, not intractable, without status migrainosus; J45.909 Unspecified asthma, uncomplicated; G40.909 Epilepsy, unspecified, not intractable, without status epilepticus; F17.210 Nicotine dependence, cigarettes, uncomplicated; Z88.6 Allergy status to analgesic agent; Z88.8 Allergy status to other drugs, medicaments and biological substances; Z79.52 Long term (current) use of systemic steroids; Z79.84 Long term (current) use of oral hypoglycemic drugs
CPT/HCPCS: J1200; J1630; J7030

== ENCOUNTER 2020-12-14 18:00 | Inpatient (IN) | payer MEDICARE, MEDICAID ==
[~2020-12-14] VITALS: Ht 165.1 cm; Wt 54.8 kg
[~2020-12-14 18:00] MED LIST changes: -HALDOL 5MG T5 MG/TAB; +HALDOL 5MG T5 MG/TAB PO; +LEVAQUIN 5500 MG/TA1 PO; -MULTIPLE VITAMI1 CAP PO; +MULTIPLE VITAMI1 TA5 PO; +PEPCID 20MG TAB20 MG PO; +PROTONIX 40MG T40 MG PO; +VENLAFAXINE225 MG PO; -VITAMIN D 50,1.25 MG PO; +VITAMIN D250 MCG PO
--- NOTE | 2020-12-14 19:55 | NUR ---
ARRIVED TO ROOM 347 VIA W/C, ALERT AND ORIENTED PT WITH DX STOMACH ULCERS. INDEPENDENT IN ROOM, GOWN PROVIDED.
[2020-12-14 20:06] VITALS: BP 90/66; PULSE 93; TEMP 97.9
[2020-12-14 20:50] LABS: BASO % 0.4 % (0.0-2.0); EOS # 0.2 (0.0-0.7); EOS % 2.3 % (0-4.0); GRAN # 3.9 (1.4-6.5); GRAN % 48.8 % (42.2-75.2); LYMPH # 3.4 (1.2-3.4); LYMPH % 42.7 % (20.0-51.0); MEAN CELL VOLUME 85 fl (80.0-100.0); MEAN CORPUSCULAR HGB CONC 32 g/dl (33.0-37.0); MEAN PLATELET VOLUME 8.8 fl (7.4-10.4); MONO # 0.4 (0.1-0.6); MONO % 5.3 % (1.7-9.3); PLATELET COUNT 300 K/mm3 (130-400); RED BLOOD COUNT 3.64 M/mm3 (4.10-5.30); REDCELL DISTRIBUTION WIDTH-CV 16.5 % (11.5-14.5)
--- NOTE | 2020-12-14 20:50 | NUR ---
STARTED #20 INSYTE TO LFT FOREARM ON FIRST ATTEMPT. FLUSHED AND IVF INITIATED WITHOUT REDNESS OR SWELLING. ADMISSION QUESTIONS COMPLETED.
[2020-12-14 20:59] LABS: HEMATOCRIT 31.1 % (37.0-47.0); HEMOGLOBIN 9.8 g/dl (12.5-16.0); MEAN CORPUSCULAR HEMOGLOBIN 27 pg (27.0-31.0)
[2020-12-14] MEDS ORDERED: SEROQUEL 1100 MG/TAB PO (21:06)
[2020-12-14] MEDS ORDERED: EFFEXOR-XR150 MG PO (21:09)
[2020-12-14] MEDS ORDERED: SPRAVATO NS (21:11)
[2020-12-14] MEDS ORDERED: KLONOPIN 0.5MG0.5 MG PO (21:12)
[2020-12-14] MEDS ORDERED: PROVIGIL 100MG100 MG PO (21:13)
[2020-12-14 21:24] LABS: ALBUMIN 2.5 gm/dL (3.5-5.0); BILIRUBIN,TOTAL 0.1 mg/dL (0.0-1.0); CALCIUM 8.2 mg/dL (8.4-10.2); CREATININE, serum 0.49 (0.52-1.25); POTASSIUM 3.8 mmol/L (3.4-5.0); TOTAL PROTEIN 4.8 gm/dL (6.4-8.2)
--- NOTE | 2020-12-14 21:44 | NUR ---
MEDICATED WITH PHENERGAN 12.5MG IV AND DILAUDID 0.5MG IVP AT THIS TIME. IS ALERT AND ORIENTED. SZ PRECAUTIONS IN PLACE. PT RESTING TO RIGHT SIDE.
--- NOTE | 2020-12-14 23:58 | NUR ---
PT RATES PAIN TO ABDOMEN 8/10, MEDICATED WITH DILAUDID 0.5MG IVP.
[2020-12-15] VITALS (12 sets, daily range): BP systolic 86–123; BP diastolic 54–97; PULSE 72–92; TEMP 97.5–97.9
--- NOTE | 2020-12-15 04:19 | NUR ---
PT RESTING IN BED. RATES PAIN TO ABD 8/10, MEDICATED WITH DILAUDID 0.5MG IVP AT THIS TIME.
[2020-12-15 07:37] LABS: BASO % 0.4 % (0.0-2.0); EOS # 0.2 (0.0-0.7); EOS % 2.5 % (0-4.0); GRAN # 5.1 (1.4-6.5); GRAN % 63.3 % (42.2-75.2); LYMPH # 2.3 (1.2-3.4); LYMPH % 28.1 % (20.0-51.0); MEAN CELL VOLUME 88 fl (80.0-100.0); MEAN CORPUSCULAR HGB CONC 31 g/dl (33.0-37.0); MEAN PLATELET VOLUME 9.1 fl (7.4-10.4); MONO # 0.4 (0.1-0.6); MONO % 5.2 % (1.7-9.3); PLATELET COUNT 224 K/mm3 (130-400); REDCELL DISTRIBUTION WIDTH-CV 16.8 % (11.5-14.5)
[2020-12-15 07:44] LABS: HEMATOCRIT 27.3 % (37.0-47.0); HEMOGLOBIN 8.4 g/dl (12.5-16.0); MEAN CORPUSCULAR HEMOGLOBIN 27 pg (27.0-31.0)
[2020-12-15 07:48] LABS: CALCIUM 7.7 mg/dL (8.4-10.2); CREATININE, serum 0.45 (0.52-1.25); POTASSIUM 3.6 mmol/L (3.4-5.0)
--- NOTE | 2020-12-15 08:00 | NUR ---
Patient is resting in bed, alert and oriented x4, BP low 89/54 and in the same levels in the last checkings. The rest of the VS WNL. Reports pain in the abdomen of 8 out of 10 in the numeric scale. No nausea or vomiting. Patient seems lack of energy and motivation. Pain medication are on hold waiting for BP to improve. Reports no further need at the momento. Call light within reach.
[2020-12-15 08:28] LABS: COLLECTION METHOD CLEAN CATCH
[2020-12-15 08:35] LABS: MUCOUS Present /lpf; PH 6 (5-8); SQUAMOUS EPITHELIAL 0-2 /hpf; URINE APPEARANCE Clear; URINE BACTERIA Rare /hpf; URINE BILIRUBIN Negative (NEGATIVE); URINE BLOOD Negative (NEGATIVE); URINE COLOR Yellow; URINE GLUCOSE Negative (NEGATIVE); URINE KETONE Negative (NEGATIVE); URINE LEUKOCYTE ESTERASE Negative (NEGATIVE); URINE NITRATE Negative (NEGATIVE); URINE PROTEIN(semi-quant) Negative (NEGATIVE); URINE RBC 0-2 /hpf; URINE UROBILINOGEN Negative (NEGATIVE)
--- NOTE | 2020-12-15 10:39 | NUR ---
PATIENT GOING DOWN TO CT VIA WC
--- NOTE | 2020-12-15 10:57 | NUR ---
Initial visit; Patient thanked tree thinner for looking in on her though declined spiritual care.
--- NOTE | 2020-12-15 12:00 | NUR ---
PATIENTS BS WAS 59, GAVE JUICE. WILL RECHECK
--- NOTE | 2020-12-15 12:03 | NUR ---
SW met with the patient to discuss discharge plan. The patient lives alone in [place]. She states that her son, Kyrie, and two good friends also live in [place]. She reports independence with ADLs and does not have any DME. The patient's PCP is Dr. Brianna Chahal and she receives her medications from [facility] in [place]. She reports no difficulties obtaining her meds. The patient does not have a DPOA-HC, but she was interested in obtaining a form. GAY provided. The patient states that she is not and has three children: Thelma (ph#[phone]), Kyrie, and Olivia. SW informed her that her three children would be her next of kin. The patient reports that she would not want her daughter, Olivia, making any decisions for her. SW encouraged the patient to consider completing a DPOA-HC. The patient plans to return home upon discharge. No additional needs at this time. *Discharge plan: home*
--- NOTE | 2020-12-15 12:35 | NUR ---
HOSPITALIST TEAM ROUNDING, SEE ORDERS.
--- NOTE | 2020-12-15 16:01 | NUR ---
Patient was taken to the OR.
--- NOTE | 2020-12-15 20:35 | NUR ---
PT ARRIVES VIA BED FROM PACU, POST EXP LAP. HAS OXYGEN AT 5L/OXYMASK, SAO2 100%. HAS IVF TO LEFT FOREARM, INFUSING WITHOUT PROBLEM. HOWE TO BSD WITH YELLOW URINE. MILD EDEMA TO LOWER LEGS. HAS MIDLINE INCISION WITH DRY DRSG, HAS 3 LAP SITES WITH BANDAIDS. EPIDURAL INFUSING, PT REPORTS PAIN 4/10. SCDS ON BILATERAL LOWER LEGS. DENIES NAUSEA. WILL BE NPO WITH SIPS AND CHIPS SPARINGLY.
[2020-12-15 20:55] LABS: HEMATOCRIT 32.9 % (37.0-47.0); HEMOGLOBIN 10.4 g/dl (12.5-16.0)
--- NOTE | 2020-12-15 21:55 | NUR ---
HESPAN INITIATED TRA 125CC/HR OVER 4 HRS.
--- NOTE | 2020-12-15 23:00 | NUR ---
PT TAKES HS MEDS WITHOUT PROBLEM.
[2020-12-16] VITALS (10 sets, daily range): BP systolic 78–105; BP diastolic 20–73; PULSE 88–107; TEMP 98.2–100.2
--- NOTE | 2020-12-16 02:00 | NUR ---
RAFY COMPLETED, H&H ORDERED. PT TAKING SIPS OF CHIPS.
[2020-12-16 03:05] LABS: MEAN CELL VOLUME 88 fl (80.0-100.0); MEAN CORPUSCULAR HGB CONC 31 g/dl (33.0-37.0); MEAN PLATELET VOLUME 9.4 fl (7.4-10.4); PLATELET COUNT 225 K/mm3 (130-400); RED BLOOD COUNT 3.16 M/mm3 (4.10-5.30); REDCELL DISTRIBUTION WIDTH-CV 16.5 % (11.5-14.5)
[2020-12-16 03:06] LABS: HEMATOCRIT 27.8 % (37.0-47.0); HEMOGLOBIN 8.7 g/dl (12.5-16.0); MEAN CORPUSCULAR HEMOGLOBIN 28 pg (27.0-31.0)
[2020-12-16 03:16] LABS: CALCIUM 7.2 mg/dL (8.4-10.2); CREATININE, serum 0.47 (0.52-1.25); POTASSIUM 3.9 mmol/L (3.4-5.0)
[2020-12-16 03:31] LABS: ANISOCYTOSIS 1+; BAND 5 % (0-10); LYMPHOCYTE 1 % (20.0-51.0); NEUTROPHILS 94 % (42.0-75.2); PLATELET ESTIMATE NORMAL (NORMAL)
[2020-12-16 03:32] LABS: HYPOCHROMIA 2+
--- NOTE | 2020-12-16 04:45 | NUR ---
REPORTED LOW B/P TO KRANTHI PEOPLES, NEW ORDER FOR NS BOLUS 500CC NOW.
--- NOTE | 2020-12-16 05:45 | NUR ---
NS BOLUS COMPLETE, BP 90/50. PT REPORTS GOOD PAIN CONTROL WITH EPIDURAL.
--- NOTE | 2020-12-16 08:00 | NUR ---
Pt doing well at this time. She is asking for some apple juice. Informed her that she is currenty NPO with sips and chips of water/ice. Pain was 7/10 at , but she did just recently use her ACQUISITION CONSULTANT epidural which ac pain down to 5/10. Bandaids and midline dressing CDI. Informed pt that I would see about getting some PT/OT for her. No other needs, will continue to monitor
--- NOTE | 2020-12-16 10:48 | NUR ---
Pt currently on a telemeeting
--- NOTE | 2020-12-16 12:01 | NUR ---
Pt has a low grade fever. IS ordered and gave instructions on how to use. PT did go in to work with pt, but had concerns about blood pressure being too low. Will discuss with anesthesia
--- NOTE | 2020-12-16 12:50 | NUR ---
Made anesthesia aware of the pts BP
--- NOTE | 2020-12-16 16:45 | NUR ---
Pt has continued to do okay today. She did work with OT some. BP is low, but pt seems asymptomatic. She has been sitting up in her bed most of the afternoon, pain controlled by epidural. She has been supping on the clear ensure which she reports tastes good and is not causing her to feel nauseated. Waiting on pharmacy to stock the fat emolsion
--- NOTE | 2020-12-16 23:14 | NUR ---
Pt has been doing ok. She rated her pain 5/10 after she told me she got up to brush her teeth. Bp is little soft. Will continue to monitor.
--- NOTE | 2020-12-17 00:30 | NUR ---
Pt O2 was 83 on RA. 2L of oxygen was applied then bring it back up to 95. Will continue to monitor.
[2020-12-17 03:09] VITALS: BP 107/67; PULSE 78; TEMP 97.7
--- NOTE | 2020-12-17 06:29 | NUR ---
Epidural run out.Anesthesia was called, they will be here in a little bit.
[2020-12-17 07:05] LABS: BASO % 0.2 % (0.0-2.0); EOS # 0.1 (0.0-0.7); EOS % 1.2 % (0-4.0); GRAN # 6.6 (1.4-6.5); GRAN % 77.3 % (42.2-75.2); LYMPH # 1.3 (1.2-3.4); LYMPH % 15.4 % (20.0-51.0); MEAN CELL VOLUME 89 fl (80.0-100.0); MEAN CORPUSCULAR HGB CONC 32 g/dl (33.0-37.0); MEAN PLATELET VOLUME 9.9 fl (7.4-10.4); MONO # 0.5 (0.1-0.6); MONO % 5.5 % (1.7-9.3); PLATELET COUNT 219 K/mm3 (130-400); RED BLOOD COUNT 2.98 M/mm3 (4.10-5.30); REDCELL DISTRIBUTION WIDTH-CV 16.6 % (11.5-14.5)
[2020-12-17 07:12] LABS: HEMATOCRIT 26.5 % (37.0-47.0); HEMOGLOBIN 8.4 g/dl (12.5-16.0); MEAN CORPUSCULAR HEMOGLOBIN 28 pg (27.0-31.0)
[2020-12-17 07:20] LABS: CALCIUM 7.2 mg/dL (8.4-10.2); CREATININE, serum 0.39 (0.52-1.25); MAGNESIUM 1.4 mg/dL (1.6-2.3); PHOSPHOROUS 3.7 mg/dL (2.5-4.5); POTASSIUM 3.7 mmol/L (3.4-5.0)
[2020-12-17 07:50] VITALS: BP 101/79; PULSE 90; TEMP 98.2
--- NOTE | 2020-12-17 09:15 | NUR ---
PT AT BEDSIDE TO WALK WITH HER. SEE PT NOTES.
--- NOTE | 2020-12-17 10:00 | NUR ---
PATIENT WANTS TO WAIT A LITTLE LONGER TO TAKE AM MEDS. PATIENT REPORTS ZOFRAN HELPED BUT SHE HASN'T SHAKEN THE NAUSEA FEELING YET. WILL MONITOR.
[2020-12-17 11:29] VITALS: BP 118/78; PULSE 84; TEMP 97.5
--- NOTE | 2020-12-17 12:30 | NUR ---
DIETARY ROUNDING, NOW DOSE OF MAG DC'D AND WILL NOW BE INCLUDED IN THE NEW TPN ORDERS. SEE ORDERS FOR PICC PLACEMENT TODAY.
--- NOTE | 2020-12-17 14:00 | NUR ---
AIVS AT BEDSIDE TO PLACE PICC LINE
[2020-12-17 15:48] VITALS: BP 117/71; PULSE 82; TEMP 98.7
[2020-12-17 19:44] VITALS: BP 106/67; PULSE 87; TEMP 98.2
--- NOTE | 2020-12-17 23:04 | NUR ---
Pt has been great. She ate, tolerated it. VSS. Will continue to monitor.
--- NOTE | 2020-12-17 23:08 | NUR ---
Pt has been nauseous all day. Zofran was given. will continue to monitor.
[2020-12-18 00:05] VITALS: BP 97/59; PULSE 93; TEMP 98.1
[2020-12-18 04:55] VITALS: BP 95/70; PULSE 81; TEMP 97.9
[2020-12-18 06:58] LABS: BASO % 0.2 % (0.0-2.0); EOS # 0.1 (0.0-0.7); EOS % 1.8 % (0-4.0); GRAN # 4.7 (1.4-6.5); GRAN % 76.4 % (42.2-75.2); LYMPH % 16.2 % (20.0-51.0); MEAN CELL VOLUME 89 fl (80.0-100.0); MEAN CORPUSCULAR HGB CONC 31 g/dl (33.0-37.0); MEAN PLATELET VOLUME 10.3 fl (7.4-10.4); MONO # 0.3 (0.1-0.6); MONO % 5.1 % (1.7-9.3); PLATELET COUNT 190 K/mm3 (130-400); RED BLOOD COUNT 2.91 M/mm3 (4.10-5.30); REDCELL DISTRIBUTION WIDTH-CV 16.4 % (11.5-14.5)
[2020-12-18 07:16] LABS: CALCIUM 7.5 mg/dL (8.4-10.2); CREATININE, serum 0.31 (0.52-1.25); HEMATOCRIT 25.9 % (37.0-47.0); HEMOGLOBIN 8.1 g/dl (12.5-16.0); MEAN CORPUSCULAR HEMOGLOBIN 28 pg (27.0-31.0); POTASSIUM 3.6 mmol/L (3.4-5.0)
[2020-12-18 07:41] LABS: MAGNESIUM 1.5 mg/dL (1.6-2.3); PHOSPHOROUS 3.8 mg/dL (2.5-4.5)
[2020-12-18 08:38] VITALS: BP 109/76; PULSE 85; TEMP 97.9
--- NOTE | 2020-12-18 10:30 | NUR ---
Patient resting in bed. She worked with therapy this am. Spoke with , he verified patient will keep epidraul today. Lovenox given per orders. Spoke with Omari Goodman in Anesthesia confirmed patient could take all of her home medication with epidrual in place. Patient reports epidural managing pain. Epidual gauze and tegaderm in place at insertion site. Abdominal dressings removed per orders. Aminata intact. Bowels quiet. Denies yet passing flatus. Not currently having nausea. Picc to Rue. Tpn per orders. Patient had sips of clears for breakfast. activity encouraged. Will monitor
--- NOTE | 2020-12-18 11:36 | NUR ---
GAY met with the patient to review d/c plan. The patient states that she still plans on returning home upon discharge. She states that she has a system set up for when she returns home. She reports that her son, Kyrie, and her best friend will be helping her out when she returns home. She had no concerns for SW about returning home. *Discharge plan: home with family/friend support*
[2020-12-18 12:13] VITALS: BP 113/76; PULSE 89; TEMP 98.4
--- NOTE | 2020-12-18 13:50 | NUR ---
Edward request zofran, nausea given. Int DC from [facility]. Sips of clears for lunch. Will monitor.
--- NOTE | 2020-12-18 15:20 | NUR ---
Called about elevated troponin, he did not want lab added on. Lab called for a redraw. Tpn on stand by. Chest xray & ekg cpmpleted. I offered to change patient bedlinens. Refused. I asked her to get up and ambulate refuses at this time. I also request she brush her teeth refused at this time. Will offer again.
--- NOTE | 2020-12-18 15:52 | NUR ---
Called chest xray results to , impression ready. No new orders at this time. Will continue to monitor
--- NOTE | 2020-12-18 16:32 | NUR ---
Called critical troponin to . Orders obtained. Paged cardiology. Called ultrasound to maek them aware of echo. They report they can do in the AM.
[2020-12-18 16:50] VITALS: BP 105/73; PULSE 90; TEMP 98.4
[2020-12-18 19:36] VITALS: BP 127/85; PULSE 93; TEMP 98.2
--- NOTE | 2020-12-18 20:05 | NUR ---
Ct scan completed this evening. Patient was able to drink her contrast & then made NPO. She was nauseated after, zofran given. Patient continues to use epidraul as needed for pain. was given radiologist number. Ct scan reviewed and patient taken to the OR with Migdalia. Lr to gravity after speaking to Omari with anesthesia-tpn stopped per order. Consent obtained after Patient spoke with doctor. Patient tearful, asked if there was anyone we could call for her. update given to quang Sanders & also let her know the critical tropnin level. Report to Suresh who will resume cares.
--- NOTE | 2020-12-18 20:50 | NUR ---
Pt is in Surgery right now. Lab called to notified pt's D-Dimer is 1026.
[2020-12-19] VITALS (16 sets, daily range): BP systolic 105–1108; BP diastolic 63–89; PULSE 86–122; TEMP 97.3–98.4
--- NOTE | 2020-12-19 02:41 | NUR ---
Pt came back around midnight from surgery.She got a exploratory lap repair and Jtube placement.Vss and pt is back TPN. Epidural is still in place for pain control. will continue to monitor.
[2020-12-19 07:35] LABS: CALCIUM 8.2 mg/dL (8.4-10.2); CREATININE, serum 0.37 (0.52-1.25); POTASSIUM 4.3 mmol/L (3.4-5.0)
[2020-12-19 07:38] LABS: MAGNESIUM 1.6 mg/dL (1.6-2.3); PHOSPHOROUS 4.8 mg/dL (2.5-4.5)
[2020-12-19 07:40] LABS: HEMATOCRIT 39.4 % (37.0-47.0); MEAN CELL VOLUME 91 fl (80.0-100.0); MEAN CORPUSCULAR HEMOGLOBIN 28 pg (27.0-31.0); MEAN CORPUSCULAR HGB CONC 31 g/dl (33.0-37.0); MEAN PLATELET VOLUME 10.9 fl (7.4-10.4); PLATELET COUNT 272 K/mm3 (130-400); RED BLOOD COUNT 4.35 M/mm3 (4.10-5.30); REDCELL DISTRIBUTION WIDTH-CV 16.9 % (11.5-14.5)
[2020-12-19 07:44] LABS: HEMOGLOBIN 12.1 g/dl (12.5-16.0); TROPONIN-I 0.013 ng/mL (0.000-0.035)
[2020-12-19 09:24] LABS: BAND 16 % (0-10); LYMPHOCYTE 1 % (20.0-51.0); NEUTROPHILS 79 % (42.0-75.2); PLATELET ESTIMATE NORMAL (NORMAL)
[2020-12-19 09:25] LABS: ANISOCYTOSIS 1+; OVALOCYTES 1+
--- NOTE | 2020-12-19 13:00 | NUR ---
Heparin initiated per orders, recheck at 1900
[2020-12-19 13:01] LABS: PARTIAL THROMBOPLASTIN TIME 30.1 SECONDS (26.0-37.0)
[2020-12-19 16:38] LABS: HEMOGLOBIN 10.6 g/dl (12.5-16.0)
[2020-12-19 16:42] LABS: HEMATOCRIT 33.6 % (37.0-47.0)
--- NOTE | 2020-12-19 17:45 | NUR ---
Patient to CT by bed.
--- NOTE | 2020-12-19 18:39 | NUR ---
Contacted Marilyn PEOPLES about CT. Discontinued heparin and restarted lovenox every 24 hours. Epidural continues infusing per orders. Patient denies pain at this time. Will report off to car shifter.
[2020-12-20] VITALS (103 sets, daily range): BP systolic 80–125; BP diastolic 52–85; PULSE 11–140; TEMP 97.4–100.2; O2SAT 62–100
[2020-12-20 05:59] LABS: BASO % 0.1 % (0.0-2.0); EOS % 0.5 % (0-4.0); GRAN # 6.9 (1.4-6.5); GRAN % 85.9 % (42.2-75.2); LYMPH # 0.5 (1.2-3.4); LYMPH % 6.4 % (20.0-51.0); MEAN CELL VOLUME 89 fl (80.0-100.0); MEAN CORPUSCULAR HGB CONC 32 g/dl (33.0-37.0); MEAN PLATELET VOLUME 10.1 fl (7.4-10.4); MONO # 0.5 (0.1-0.6); MONO % 6.4 % (1.7-9.3); PLATELET COUNT 177 K/mm3 (130-400); RED BLOOD COUNT 2.72 M/mm3 (4.10-5.30); REDCELL DISTRIBUTION WIDTH-CV 16.7 % (11.5-14.5)
[2020-12-20 06:03] LABS: HEMOGLOBIN 7.7 g/dl (12.5-16.0); MEAN CORPUSCULAR HEMOGLOBIN 28 pg (27.0-31.0)
[2020-12-20 06:04] LABS: HEMATOCRIT 24.2 % (37.0-47.0)
[2020-12-20 06:19] LABS: ALANINE AMINOTRANSFERASE 8 U/L (4-34); ALBUMIN 1.7 gm/dL (3.5-5.0); ALKALINE PHOSPHATASE 68 U/L (50-136); ANION GAP -2 mmol/L (7-16); AST,SGOT 19 U/L (15-37); BILIRUBIN,TOTAL < 0.1 mg/dL (0.0-1.0); BLOOD UREA NITROGEN 17 mg/dL (7-17); CALCIUM 7.5 mg/dL (8.4-10.2); CARBON DIOXIDE 31 mmol/L (22-30); CHLORIDE 102 mmol/L (98-107); CREATININE, serum 0.36 (0.52-1.25); GLUCOSE 131 mg/dL (74-106); LIPASE < 10 U/L (23-300); MAGNESIUM 1.7 mg/dL (1.6-2.3); PHOSPHOROUS 3.4 mg/dL (2.5-4.5); POTASSIUM 4.1 mmol/L (3.4-5.0); SODIUM 130 mmol/L (137-145); TOTAL PROTEIN 3.7 gm/dL (6.4-8.2)
--- NOTE | 2020-12-20 09:41 | NUR ---
Patient plesant this am. Reports a headache. She reports she gets chronic headaches. Epidraul at 6. managing abdominal pain. Patient assisted to edge of bed. Stood. hygiene provided. warm wipes. Offered to help her with her hair, but refusing at this time. Will offer again this afternoon. Coccyx noted to have reddened area. Allyven foam applied. Stressed the importance of repositioning. offered matress pad. toothbrush provided. discussed umportance of oral hygeine & continued use of incentive spirometer. Lara to DD with yousuf urine output. G tube to DD, hay/brown output. Abdomen soft, bowel quiet. Denies yet passing flatus-reports she had belched. Picc to Rue, Tpn per orders. Did give zofran for reports of nausea. Overall she reports feeling better. Lovenox held-spoke to about holding due to H&H level & vitals signs. He will be in to see patient.
--- NOTE | 2020-12-20 10:25 | NUR ---
, , all have rounded on patient. Plan of care reviewed. Orders obtained. They are aware of tachycardia.
--- NOTE | 2020-12-20 11:15 | NUR ---
Patient using IS. Productive cough. Thick clear/hay in color. Rt made aware of new orders. Will let patietn rest, but will continue to encourage activity.
[2020-12-20 13:37] LABS: HEMATOCRIT 25.2 % (37.0-47.0); HEMOGLOBIN 7.8 g/dl (12.5-16.0)
--- NOTE | 2020-12-20 15:34 | NUR ---
Patient resting in bed. Completed her first mucomyst breathing treatment. She continues to use her Incentive spirometer hourly. Cough remains productive. Unit of blood ready and started per protocol. Verified with Olivia Easton. Infusing via Picc to RUE at 60ml/hr. Signs & Symptoms of transfusion reaction reviewed with patient. This nurse remains at bedside.
--- NOTE | 2020-12-20 16:18 | NUR ---
Patient transfered from medical floor down to icu room 5 due to respiratory distress. Patient alert and oriented but anxious and in moderate distress. 02 85% on 15L during transfer down to ICU. Upon arrival was immediately transfered to [facility] at 100%. Continued to sit in mid 80's to low 90's on 100%. Dr. Chahal notified and he requested anesthesia be contact for intubation. Anesthesia notified at this time.
--- NOTE | 2020-12-20 16:24 | NUR ---
Pt arrived at 1624, accompanied with Emily(surgical)RN, Mary&Juana,RT, and BALTAZAR Olivas (who responded to [employer] call). Pt AAOx4, texting family members on cell phone - unable to call and talk d/t BiPAP. Pt hypoxic, tachycardic and tachypenic - MD Delfino on unit within minutes of pt arrival - pt discussed with MD Delfino and consents to intuabation and mechanical ventilation - MD Delfino called pt's mother and updated then placed mother on speaker phone for mother to talk with pt before being intubated. MD Tirso on unit prior to intubation and spoke with pt about intubation as well. Pt experienced post-intubation hypotension - MD Tirso ordered phenlepherine gtt however gtt unavailable in ICU and ER med-machines. Candy Vendor BALTAZAR Toth already on unit and gtt was mixed and brought to unit from pharmacy by BALTAZAR Toth. Vasopressor initiated as soon as its arrival, however pt's blood pressure was normalizing. After intubation meds wore off, pt able to open eyes, move all extremities, follow commands and comprehend conversation - pt able to nonverbally state she feels much better now. BALTAZAR Paul was provided report from Emily, however we both were involved in the immediate care of the pt d/t her symptoms and presentation.
--- NOTE | 2020-12-20 16:30 | NUR ---
Xray being completed by [employer]. Patient lying supine on her back. Upon arrival to room. O2 sat 76% on 5LNC. Patient alert and oriented. Cat call made. House suporvisor to bedside. RT to bedside. ICU charge Deisy to Bedside. called. Patient to ICU
[2020-12-20 16:32] LABS: ARTERIAL BLD GAS O2 SATURATION 92.2 % (92-100); ARTERIAL BLD GAS TCO2 CT 27.4; ARTERIAL BLOOD GAS BASE EXCESS 1.5 (-2-2); ARTERIAL BLOOD GAS HCO3 26.1 meq/L (22-26); ARTERIAL BLOOD GAS PCO2 41.2 mmHg (35-45); ARTERIAL BLOOD GAS PO2 65.1 mmHg (80-100); ARTERIAL BLOOD GAS pH 7.42 (7.35-7.45)
--- NOTE | 2020-12-20 16:40 | NUR ---
Blood bank called. Transfusion reaction suspected. Protocol followed.
--- NOTE | 2020-12-20 17:07 | NUR ---
Anesthesia at bedside. Intubated at 1717. Dr. Chahal at bedside to assist with intubation and give orders as needed.
[2020-12-20 17:53] LABS: MEAN CELL VOLUME 88 fl (80.0-100.0); MEAN CORPUSCULAR HGB CONC 31 g/dl (33.0-37.0); MEAN PLATELET VOLUME 10.2 fl (7.4-10.4); PLATELET COUNT 165 K/mm3 (130-400); RED BLOOD COUNT 3.31 M/mm3 (4.10-5.30); REDCELL DISTRIBUTION WIDTH-CV 16.3 % (11.5-14.5)
[2020-12-20 17:58] LABS: HEMOGLOBIN 9.1 g/dl (12.5-16.0); MEAN CORPUSCULAR HEMOGLOBIN 27 pg (27.0-31.0)
[2020-12-20 18:06] LABS: ALANINE AMINOTRANSFERASE 9 U/L (4-34); ALBUMIN 1.9 gm/dL (3.5-5.0); ALKALINE PHOSPHATASE 82 U/L (50-136); ANION GAP 1 mmol/L (7-16); AST,SGOT 15 U/L (15-37); BILIRUBIN,TOTAL 0.3 mg/dL (0.0-1.0); BLOOD UREA NITROGEN 15 mg/dL (7-17); CALCIUM 7.7 mg/dL (8.4-10.2); CARBON DIOXIDE 28 mmol/L (22-30); CHLORIDE 100 mmol/L (98-107); CREATININE, serum 0.41 (0.52-1.25); GLUCOSE 106 mg/dL (74-106); POTASSIUM 4.2 mmol/L (3.4-5.0); SODIUM 130 mmol/L (137-145); TOTAL PROTEIN 4.1 gm/dL (6.4-8.2)
--- NOTE | 2020-12-20 18:15 | NUR ---
Maria L stated that ordered Zosyn will be reviewed by [place] Pharmacist at 2100 - then dose can be administered
[2020-12-20 18:20] LABS: TROPONIN-I < 0.012 ng/mL (0.000-0.035)
[2020-12-20 18:58] LABS: BAND 9 % (0-10); HYPOCHROMIA 2+; LYMPHOCYTE 4 % (20.0-51.0); METAMYELOCYTE 2 % (0-0); NEUTROPHILS 80 % (42.0-75.2); PLATELET ESTIMATE NORMAL (NORMAL)
--- NOTE | 2020-12-20 19:00 | NUR ---
Ok per Dr. Alva to use G tube for medications. Will flush before and after medications with h20. Can leave to dependent drainage between usages.
--- NOTE | 2020-12-20 20:02 | NUR ---
This RN, SHELTON Sanders, and BALTAZAR Barajas called to bedside by RT. Patient shaking, ativan ordered by SHELTON for seizure.
[2020-12-20 20:15] LABS: COLLECTION METHOD CLEAN CATCH
[2020-12-20 20:21] LABS: MUCOUS Present /lpf; PH 5 (5-8); SQUAMOUS EPITHELIAL 0-2 /hpf; URINE APPEARANCE Clear; URINE BACTERIA Rare /hpf; URINE BILIRUBIN Negative (NEGATIVE); URINE BLOOD Negative (NEGATIVE); URINE COLOR Yellow; URINE GLUCOSE Negative (NEGATIVE); URINE KETONE Negative (NEGATIVE); URINE LEUKOCYTE ESTERASE Negative (NEGATIVE); URINE NITRATE Negative (NEGATIVE); URINE PROTEIN(semi-quant) Negative (NEGATIVE); URINE RBC 0-2 /hpf; URINE UROBILINOGEN Negative (NEGATIVE); URINE WBC 0-2 /hpf
[2020-12-20 21:00] LABS: ARTERIAL BLD GAS O2 SATURATION 94.7 % (92-100); ARTERIAL BLD GAS TCO2 CT 27.7; ARTERIAL BLOOD GAS BASE EXCESS 2.7 (-2-2); ARTERIAL BLOOD GAS HCO3 26.5 meq/L (22-26); ARTERIAL BLOOD GAS PCO2 37.6 mmHg (35-45); ARTERIAL BLOOD GAS PO2 72.2 mmHg (80-100); ARTERIAL BLOOD GAS pH 7.47 (7.35-7.45)
[2020-12-21] VITALS (459 sets, daily range): BP systolic 82–128; BP diastolic 57–82; PULSE 49–90; TEMP 98.3–99.5; O2SAT 59–100
[2020-12-21 05:05] LABS: MEAN CELL VOLUME 86 fl (80.0-100.0); MEAN CORPUSCULAR HGB CONC 33 g/dl (33.0-37.0); MEAN PLATELET VOLUME 10.3 fl (7.4-10.4); PLATELET COUNT 227 K/mm3 (130-400); RED BLOOD COUNT 3.08 M/mm3 (4.10-5.30)
[2020-12-21 05:18] LABS: CALCIUM 7.8 mg/dL (8.4-10.2); CREATININE, serum 0.4 (0.52-1.25); MAGNESIUM 1.5 mg/dL (1.6-2.3); PHOSPHOROUS 4.2 mg/dL (2.5-4.5); POTASSIUM 4.1 mmol/L (3.4-5.0)
[2020-12-21 05:26] LABS: HEMATOCRIT 26.4 % (37.0-47.0); HEMOGLOBIN 8.6 g/dl (12.5-16.0); MEAN CORPUSCULAR HEMOGLOBIN 28 pg (27.0-31.0)
[2020-12-21 05:43] LABS: ARTERIAL BLD GAS O2 SATURATION 97.3 % (92-100); ARTERIAL BLD GAS TCO2 CT 26.3; ARTERIAL BLOOD GAS BASE EXCESS 2.9 (-2-2); ARTERIAL BLOOD GAS HCO3 25.3 meq/L (22-26); ARTERIAL BLOOD GAS PCO2 30.7 mmHg (35-45); ARTERIAL BLOOD GAS PO2 95.3 mmHg (80-100); ARTERIAL BLOOD GAS pH 7.53 (7.35-7.45)
--- NOTE | 2020-12-21 05:50 | NUR ---
Recieved order from Jina to decrease vent rate to 18. pH 7.53, paCO2 30.7.
--- NOTE | 2020-12-21 11:32 | NUR ---
Patient transferred to ICU yesterday and has been intubated. GAY contacted patient's daughter, Thelma and advised that she and her siblings would be patient's legal next of kin and would be decision makers if patient is unable to make her own decisions. Thelma verbalized understanding and confirmed patient has only three children: Thelma, Kyrie, and Lauren. Thelma advised they have a different family dynamic so she did not have her siblings' phone numbers readily available but advised she could track them down and provide numbers to SW once she is no longer driving and can locate the numbers through social media. GAY contacted patient's friend, Courtney who also does not have any contact information for patient's children. GAY collaborated with RNDevon and advised that patient's children are legal next of kin and decision makers. Devon advised Kyrie has been in to visit but has not left a phone number. GAY will continue to follow.
--- NOTE | 2020-12-21 15:33 | NUR ---
Pt has been awake, alert and oriented while on ventilator - interacting with visitor/friend - pt calm, occasionally tearful about situation - positive reinforcement provided. After visitor departed pt requesting to be more sedated to ease abdominal and tracheal discomfort.
--- NOTE | 2020-12-21 23:35 | NUR ---
INITIATED TRICKLE TUBE FEEDINGS PER ORDERS, NO RESIDUAL NOTED AT THIS TIME NOTED 100 ML OF DARK GREEN MUCOUS DRAINAGE FROM G TUBE INTO GRAVITY DRAIN BAG
[2020-12-22] VITALS (572 sets, daily range): BP systolic 11–159; BP diastolic 40–85; PULSE 55–117; TEMP 97.8–98.7; O2SAT 67–100
[2020-12-22 04:47] LABS: ARTERIAL BLD GAS O2 SATURATION 94.5 % (92-100); ARTERIAL BLD GAS TCO2 CT 27.8; ARTERIAL BLOOD GAS BASE EXCESS 2.6 (-2-2); ARTERIAL BLOOD GAS HCO3 26.7 meq/L (22-26); ARTERIAL BLOOD GAS PCO2 38.6 mmHg (35-45); ARTERIAL BLOOD GAS pH 7.46 (7.35-7.45)
--- NOTE | 2020-12-22 07:00 | NUR ---
Pt AAOx4, restraints not required and discontinued. Pt using cell phone.
--- NOTE | 2020-12-22 09:45 | NUR ---
Pt extbated with MD Tirso standing by. Pt placed on 10L OxyMask with SpO2 91-95%. Pt in no distress. Incentive Spirometer will be proivded by RT Deep breathing and coughing encouraged/educated. Pt experiencing minor adbominal pain but is tolerable, no complications from trickle feeds.
--- NOTE | 2020-12-22 10:25 | NUR ---
PT TOLERATED WEANING AND CPAP TRIAL WELL, THEN PROCEEDED TO EXTUBATE AND LEFT ON 10L OXYMASK. PT IS LOOKING GREAT
[2020-12-22 15:26] LABS: MEAN CELL VOLUME 88 fl (80.0-100.0); MEAN CORPUSCULAR HGB CONC 32 g/dl (33.0-37.0); MEAN PLATELET VOLUME 10.3 fl (7.4-10.4); PLATELET COUNT 193 K/mm3 (130-400); RED BLOOD COUNT 2.74 M/mm3 (4.10-5.30); REDCELL DISTRIBUTION WIDTH-CV 16.6 % (11.5-14.5)
[2020-12-22 15:27] LABS: HEMATOCRIT 24.1 % (37.0-47.0); HEMOGLOBIN 7.6 g/dl (12.5-16.0); MEAN CORPUSCULAR HEMOGLOBIN 28 pg (27.0-31.0)
[2020-12-22 15:36] LABS: CALCIUM 7.9 mg/dL (8.4-10.2); CREATININE, serum 0.47 (0.52-1.25); POTASSIUM 3.1 mmol/L (3.4-5.0)
[2020-12-23] VITALS (526 sets, daily range): BP systolic 90–120; BP diastolic 54–82; PULSE 95–112; TEMP 97.4–98.3; O2SAT 37–100
[2020-12-23 05:16] LABS: MEAN CELL VOLUME 89 fl (80.0-100.0); MEAN CORPUSCULAR HGB CONC 31 g/dl (33.0-37.0); MEAN PLATELET VOLUME 10.5 fl (7.4-10.4); PLATELET COUNT 184 K/mm3 (130-400); REDCELL DISTRIBUTION WIDTH-CV 16.8 % (11.5-14.5)
[2020-12-23 05:24] LABS: HEMATOCRIT 26.8 % (37.0-47.0); HEMOGLOBIN 8.4 g/dl (12.5-16.0); MEAN CORPUSCULAR HEMOGLOBIN 28 pg (27.0-31.0)
[2020-12-23 05:27] LABS: ALANINE AMINOTRANSFERASE 8 U/L (4-34); ALKALINE PHOSPHATASE 68 U/L (50-136); ANION GAP 0 mmol/L (7-16); AST,SGOT 14 U/L (15-37); BILIRUBIN,TOTAL < 0.1 mg/dL (0.0-1.0); BLOOD UREA NITROGEN 22 mg/dL (7-17); CALCIUM 7.8 mg/dL (8.4-10.2); CARBON DIOXIDE 33 mmol/L (22-30); CHLORIDE 104 mmol/L (98-107); CHOLESTEROL 75 mg/dL (120-200); CREATININE, serum 0.39 (0.52-1.25); GLUCOSE 175 mg/dL (74-106); MAGNESIUM 1.5 mg/dL (1.6-2.3); PHOSPHOROUS 3.4 mg/dL (2.5-4.5); POTASSIUM 3.7 mmol/L (3.4-5.0); SODIUM 137 mmol/L (137-145); TOTAL PROTEIN 4.3 gm/dL (6.4-8.2); TRIGLYCERIDE 109 mg/dL
[2020-12-23 05:34] LABS: PRE ALBUMIN 7.4 mg/dL (17.6-36.0)
[2020-12-23 05:47] LABS: ARTERIAL BLD GAS O2 SATURATION 88.2 % (92-100); ARTERIAL BLD GAS TCO2 CT 29.3; ARTERIAL BLOOD GAS BASE EXCESS 4.3 (-2-2); ARTERIAL BLOOD GAS HCO3 28.1 meq/L (22-26); ARTERIAL BLOOD GAS PCO2 38.9 mmHg (35-45); ARTERIAL BLOOD GAS PO2 56.2 mmHg (80-100); ARTERIAL BLOOD GAS pH 7.48 (7.35-7.45)
--- NOTE | 2020-12-23 07:20 | NUR ---
RECEIVED REPORT FROM BALTAZAR BURRIS. PATIENT RESTING IN BED ON HIGH FLOW NASAL CANNULA. VSS, HOWE PATENT, DRAINING TO GRAVITY AND FREE OF KINKS AND DEPENDENT LOOPS. COMPLAINTS OF PAIN/NAUSEA. WILL ADDRESS. DIPIKA PICC IN PLACE, PATENT BUT UNABLE TO GET BLOOD RETURN. WILL ADDRESS. CALL LIGHT WITHIN REACH.
--- NOTE | 2020-12-23 08:25 | NUR ---
DR. NG AT BEDSIDE. DICUSSED PLAN OF CARE AND ORDERS RECEIVED.
--- NOTE | 2020-12-23 09:15 | NUR ---
SPOKE TO PRISCILA REGARDING INABILITY TO GET BLOOD RETURN. ADVISED TO GET ORDER FOR CATHFLO BECAUSE CHEST XRAY SHOWED IT WAS IN PLACE.
--- NOTE | 2020-12-23 09:15 | NUR ---
PICC intact right upper and flushed witih 40ml normal saline with no blood return noted. advised cath cleopatra and visited with primary care nurse.
--- NOTE | 2020-12-23 12:03 | NUR ---
Regulatory Affairs Director collaborated with Cher Kirk who advised patient will likely discharge home with PEG tube feedings. SW met with patient to review discharge plan. Patient still plans to return home upon discharge. Patient lives alone but has support from her friend, Courtney and son, Kyrie. SW discussed Home Health services with patient who may be agreeable but would like to review list of HH agencies. SW provided and reviewed Medicare.gov list of HH agencies that serve [place]. SW will follow up on patient choice. Discharge Plan: Home with Home Health
--- NOTE | 2020-12-23 16:52 | NUR ---
CALLED REPORT TO BALTAZAR FAY.
--- NOTE | 2020-12-23 18:38 | NUR ---
Patient up from ICU at approximatly 1700. Alert and oriented x 3. Lara to DD with clear yellow urine present. G tube with continuous feeding. TPN infusing to DIPKIA PICC line. PICC line without complications. On 6 L of oxygen via high flow NC. Lap sites x 2 with edges well approximated. Midline incision with gauze. Denies pain at this time. Denies further needs at this time. Will report off to night club manager.
--- NOTE | 2020-12-23 20:00 | NUR ---
Pt. sitting up in bed. Pt. is A&OX3, assessment complete. PICC to rt. upper arm TPN infusing per orders. Lara catheter to DD, clear yousuf urine noted. Abd. dressing CDI. Pt. reports pain at a 6 on pain scale, gaving pain meds per orders. Pt. denies further needs, call light within reach.
[2020-12-24 03:10] VITALS: BP 139/59; PULSE 86; TEMP 98.4
[2020-12-24 03:23] VITALS: BP 118/73; PULSE 107; TEMP 98
[2020-12-24 07:17] LABS: POTASSIUM 3.9 mmol/L (3.4-5.0)
[2020-12-24 07:32] VITALS: BP 108/69; PULSE 76; TEMP 98
[2020-12-24 08:10] LABS: MEAN CELL VOLUME 89 fl (80.0-100.0); MEAN CORPUSCULAR HGB CONC 30 g/dl (33.0-37.0); MEAN PLATELET VOLUME 10.8 fl (7.4-10.4); PLATELET COUNT 215 K/mm3 (130-400); RED BLOOD COUNT 2.75 M/mm3 (4.10-5.30); REDCELL DISTRIBUTION WIDTH-CV 16.8 % (11.5-14.5)
[2020-12-24 08:11] LABS: HEMATOCRIT 24.4 % (37.0-47.0); HEMOGLOBIN 7.4 g/dl (12.5-16.0); MEAN CORPUSCULAR HEMOGLOBIN 27 pg (27.0-31.0)
[2020-12-24 08:15] LABS: CALCIUM 7.9 mg/dL (8.4-10.2); CREATININE, serum 0.36 (0.52-1.25); MAGNESIUM 1.7 mg/dL (1.6-2.3)
[2020-12-24 12:00] VITALS: BP 105/75; PULSE 100; TEMP 97.3
[2020-12-24 15:38] VITALS: BP 110/70; PULSE 103; TEMP 98.4
--- NOTE | 2020-12-24 16:03 | NUR ---
Yelena, the felt hat flanging operator, notified GAY that she is adjusting the patient's feedings Yelena reports that they will know what feedings the patient will need to be on and tolerates next week for when she returns home. She placed the feedings script on the patient's chart and reports that it needs to be signed by Dr. Ames. GAY met with the patient to follow up on home health preference. The patient states that she is having an off day and has not been able to look over the list yet. She reports that she is agreeable to home health and is aware that she will need the tube feedings. GAY informed her of [facility] and how they could supply her feedings. The patient verbalized understanding. SW to continue to follow.
--- NOTE | 2020-12-24 20:10 | NUR ---
Pt. sitting up in bed at this time. Pt. is A&OX3, assessment complete. PICC to rt. upper arm patent. Lara catheter to DD, clear yellow urine noted. Dressing to abd. incision CDI. Pt. reports pain at a 4 on pain scale after pain meds. Pt. denies further needs, call light within reach.
[2020-12-24 20:38] VITALS: BP 111/71; PULSE 94; TEMP 97.9
[2020-12-25] VITALS (7 sets, daily range): BP systolic 92–107; BP diastolic 50–66; PULSE 72–103; TEMP 96.4–98.6
--- NOTE | 2020-12-25 06:00 | NUR ---
Pt. resting in bed at this time. Pt.'s g-tube checked for residual, had 60 mls. Continued tubefeeding and increased rate to 43ml/hr per orders. Pt. reports pain at a 7 on pain scale, gave pain meds per orders. Pt. denies further needs, call light within reach.
[2020-12-25 07:29] LABS: CALCIUM 8.1 mg/dL (8.4-10.2); CREATININE, serum 0.37 (0.52-1.25); MAGNESIUM 1.7 mg/dL (1.6-2.3); PHOSPHOROUS 4.6 mg/dL (2.5-4.5)
[2020-12-25 08:25] LABS: MEAN CELL VOLUME 88 fl (80.0-100.0); MEAN CORPUSCULAR HGB CONC 31 g/dl (33.0-37.0); MEAN PLATELET VOLUME 10.5 fl (7.4-10.4); PLATELET COUNT 251 K/mm3 (130-400); RED BLOOD COUNT 2.78 M/mm3 (4.10-5.30); REDCELL DISTRIBUTION WIDTH-CV 16.6 % (11.5-14.5)
[2020-12-25 08:40] LABS: HEMATOCRIT 24.4 % (37.0-47.0); HEMOGLOBIN 7.6 g/dl (12.5-16.0); MEAN CORPUSCULAR HEMOGLOBIN 27 pg (27.0-31.0)
[2020-12-25 09:18] LABS: ANISOCYTOSIS 1+; BAND 1 % (0-10); EOSINOPHIL 1 % (0-4); HYPOCHROMIA 2+; LYMPHOCYTE 15 % (20.0-51.0); METAMYELOCYTE 1 % (0-0); NEUTROPHILS 75 % (42.0-75.2); PLATELET ESTIMATE NORMAL (NORMAL)
[2020-12-25 09:25] LABS: IRON,SERUM 16 ug/dL (35-150)
[2020-12-25 09:34] LABS: TOTAL IRON BINDING CAPACITY 230 ug/dL (265-497)
--- NOTE | 2020-12-25 11:54 | NUR ---
Nurse Staff Industrial met with patient to follow up on Home Health. Patient states she is interested in Home Health and feels she will need it upon discharge, but just has not decided on an agency at this time. SW encouraged patient to review list as HH will need to be arranged prior to discharge. Patient verbalized understanding. Discharge Plan: Home with Home Health, also will discharge with G-tube.
--- NOTE | 2020-12-25 13:01 | NUR ---
Patient was up and ambulated this am with therapy. Hospitalist team rounded. Order obtained. Marco Clark per order & patient tolerated well, pericare provided. AM medication given with increase in roxicodone dose-pain rating 8/10.
--- NOTE | 2020-12-25 16:39 | NUR ---
Patient resting in bed. She has rested well this afternoon. Patient worn out after shower given with assistance from OT. Patient very thankful for cares given. New dressing to G tube site. Tele on Vss. Patient had a productive cough after activity. Using beside yanker PRN. Voiding without problems since marrero removed. No loose stool since this am. She tolerated her full liquid tray at lunch. 70 mls residual at 1400 from gtube. Will continue to [facility].
--- NOTE | 2020-12-25 19:09 | NUR ---
Patient resting in bed. Roxicodone for pain per request. She tolerated her full liquid dinner. Zofran PO this afternoon resolved her nausea. Tube feed container via G tube per orders. New tube feeding hung per orders she remains at goal rate of 43. Bedside report to sam
--- NOTE | 2020-12-25 20:30 | NUR ---
PT IN BED. REPORTS FEELING BETTER TODAY. HAS TUBE FEEDING INFUSING TO PEG AT 43CC/HR, RESIDUAL OF 60CC. HAS HOB ELEVATED. HAS RT PICC, FLUSHES WELL. VOIDING WITHOUT PROBLEM SINCE HOWE REMOVED. WEARING OXYGEN AT 5L/NC. HAS LOOSE NPC. MILD SWELLING TO LOWER LEGS NOTED. LAURA INTACT TO MIDLINE INCISION. HAD PAIN MEDS PREVIOUSLY, RATES PAIN 2/10. WILL MONITOR FOR CHANGES.
--- NOTE | 2020-12-25 21:45 | NUR ---
STOOL OBTAINED FOR CDIFF, SENT TO LAB
[2020-12-25 22:24] LABS: CLOSTRIDIUM DIFF A/B NEG; CLOSTRIDIUM DIFF A/B INTERP No C.diff present
[2020-12-25 23:10] LABS: FOLATE (FOLIC ACID) 4.4 ng/mL (2.0-20.0)
--- NOTE | 2020-12-26 00:30 | NUR ---
PT REPORTS PAIN 7/10, OXYCODONE 10MG PO GIVEN.
--- NOTE | 2020-12-26 03:00 | NUR ---
PTS PEG TUBE FELL OUT. BALLOON COMPLETELY DEFLATED.
[2020-12-26 03:09] VITALS: BP 94/50; PULSE 85; TEMP 97.9
--- NOTE | 2020-12-26 03:10 | NUR ---
SPOKE WITH DR LEVY REGARDING PEG TUBE FALLING OUT, ORDERED #16FR HOWE TO BE PLACED IN OLD PEG SITE AND HOLD TUBE FEEDING TONIGHT.
--- NOTE | 2020-12-26 03:54 | NUR ---
NOTIFIED DR LEVY STAFF UNABLE TO PLACE THE #16FR HOWE TO PEG SITE. NO NEW ORDERS.
--- NOTE | 2020-12-26 04:00 | NUR ---
MEDICATED WITH OXYCODONE 10MG PO FOR ABD PAIN 01/02. REDRESSED OLD PEG SITE WITH GAUZE.
[2020-12-26 08:00] VITALS: BP 83/48; PULSE 100; TEMP 97.8
--- NOTE | 2020-12-26 09:26 | NUR ---
Dr Cade has been in to see patient. Attempted to place peg tube, but was not successful. Pt has complaints of pain 10/ with this, pain medication given. Pt has no other complaints, is aware that she can have a general diet and is ordering something to eat. Call light within reach
[2020-12-26 10:19] LABS: MEAN CELL VOLUME 88 fl (80.0-100.0); MEAN CORPUSCULAR HGB CONC 31 g/dl (33.0-37.0); PLATELET COUNT 308 K/mm3 (130-400); RED BLOOD COUNT 3.02 M/mm3 (4.10-5.30); REDCELL DISTRIBUTION WIDTH-CV 16.9 % (11.5-14.5)
[2020-12-26 10:22] LABS: HEMATOCRIT 26.7 % (37.0-47.0); HEMOGLOBIN 8.3 g/dl (12.5-16.0); MEAN CORPUSCULAR HEMOGLOBIN 27 pg (27.0-31.0)
[2020-12-26 10:28] LABS: CALCIUM 8.3 mg/dL (8.4-10.2); CREATININE, serum 0.38 (0.52-1.25); POTASSIUM 3.7 mmol/L (3.4-5.0)
--- NOTE | 2020-12-26 11:19 | NUR ---
resting in bed, bedside shift report received from BALTAZAR Mejia
[2020-12-26 12:00] VITALS: BP 98/55; PULSE 104; TEMP 98.5
--- NOTE | 2020-12-26 13:00 | NUR ---
resting in bed with eyes closed and is ready to take a nap, also c/o pain 11/02 and medicated with roxicodone 10mg, Dr Cade in to see patient
--- NOTE | 2020-12-26 14:54 | NUR ---
is haviang lunch slowly, states relief from pain pills given earlier, she is alert and oriented, skin warm and dry, color normal, heart rate strong and regular, lugs CTA, bowel sounds present in 4 quads, midline incision CD&I, gauze dressing over PEG tube site, peripherl pulses present in 4 extremities, denies needs at this time
--- NOTE | 2020-12-26 16:00 | NUR ---
in bed and appears to be sleeping,
[2020-12-26 16:45] VITALS: BP 94/59; PULSE 106; TEMP 97.6
--- NOTE | 2020-12-26 18:52 | NUR ---
bedside shift report given to BALTAZAR Baltazar
[2020-12-26 19:36] VITALS: BP 106/73; PULSE 114; TEMP 98
--- NOTE | 2020-12-26 22:21 | NUR ---
PT'S DRAIN SITE WAS STEADILY OOZING GREEN/BILE-KETAN LOOKING FLUID. GAUZE AND ABD APPLIED.
[2020-12-27] VITALS (8 sets, daily range): BP systolic 90–114; BP diastolic 54–65; PULSE 93–117; TEMP 97.6–99.1
--- NOTE | 2020-12-27 04:51 | NUR ---
PT MEDICATED FOR ABDOMINAL DISCOMFORT WITH OXYCODONE. ABD DRESSING APPLIED TO G-TUBE SITE STILL HOLDING, NO STRIKETHROUGH DRAINAGE.
[2020-12-27 06:29] LABS: MEAN CELL VOLUME 89 fl (80.0-100.0); MEAN CORPUSCULAR HGB CONC 30 g/dl (33.0-37.0); MEAN PLATELET VOLUME 10.2 fl (7.4-10.4); PLATELET COUNT 353 K/mm3 (130-400); RED BLOOD COUNT 2.77 M/mm3 (4.10-5.30); REDCELL DISTRIBUTION WIDTH-CV 16.9 % (11.5-14.5)
[2020-12-27 06:36] LABS: HEMATOCRIT 24.6 % (37.0-47.0); HEMOGLOBIN 7.4 g/dl (12.5-16.0); MEAN CORPUSCULAR HEMOGLOBIN 27 pg (27.0-31.0)
[2020-12-27 06:48] LABS: CALCIUM 8.2 mg/dL (8.4-10.2); CREATININE, serum 0.36 (0.52-1.25); POTASSIUM 3.7 mmol/L (3.4-5.0)
[2020-12-27 07:33] LABS: ANISOCYTOSIS 2+; HYPOCHROMIA 3+; LYMPHOCYTE 7 % (20.0-51.0); MYELOCYTE 2 % (0-0); NEUTROPHILS 87 % (42.0-75.2); PLATELET ESTIMATE NORMAL (NORMAL)
--- NOTE | 2020-12-27 09:00 | NUR ---
Patient resting in bed. awake and alert. Working on breakfast. Picc with IV antibioitcs as ordered. Patient prior g tube site does continue to have green bile in appperence draiange. Patient also request pain and nausea medication this am, given per orders. Alvin borrero.
--- NOTE | 2020-12-27 15:22 | NUR ---
New dressing to prior g tube site. gauze and tegadern used. Doctors are aware of drainage. Patient tolerated lunch, she was disappointed she could not have chicken strips. Patient wanting to nap. Alvin borrero.
--- NOTE | 2020-12-27 18:47 | NUR ---
Patient resting in bed. Reports nausea. PO zofran did not relieve nausea. Spoke to Leela & pascual order obtained. Roxicodone for pain. Patient reports pain located at g tube site & is sharp at times, no longer sugical pain. Report to sam
[2020-12-28 03:31] VITALS: BP 100/54; PULSE 97; TEMP 98.3
--- NOTE | 2020-12-28 06:17 | NUR ---
RESTING QUIETLY. HEART RATE STILL TACHY. CHANGED DRESSING OVER OLD G-TUBE SITE x1. OXYCODONE FOR PAIN. PHENERGAN FOR NAUSEA.
[2020-12-28 07:05] LABS: MEAN CELL VOLUME 90 fl (80.0-100.0); MEAN CORPUSCULAR HGB CONC 30 g/dl (33.0-37.0); MEAN PLATELET VOLUME 9.8 fl (7.4-10.4); PLATELET COUNT 361 K/mm3 (130-400); RED BLOOD COUNT 2.79 M/mm3 (4.10-5.30); REDCELL DISTRIBUTION WIDTH-CV 17.2 % (11.5-14.5)
[2020-12-28 07:07] VITALS: BP 105/69; PULSE 90; TEMP 97.3
[2020-12-28 07:14] LABS: CALCIUM 8.1 mg/dL (8.4-10.2); CREATININE, serum 0.33 (0.52-1.25); MAGNESIUM 1.7 mg/dL (1.6-2.3); PHOSPHOROUS 4.2 mg/dL (2.5-4.5); POTASSIUM 3.1 mmol/L (3.4-5.0)
[2020-12-28 07:15] LABS: HEMATOCRIT 25.1 % (37.0-47.0); HEMOGLOBIN 7.6 g/dl (12.5-16.0); MEAN CORPUSCULAR HEMOGLOBIN 27 pg (27.0-31.0)
--- NOTE | 2020-12-28 08:50 | NUR ---
Patient working on breakfast. Patient glad to be off IV medications. Roxicodone for pain per orders. G tube site dressing CDI. Will monitor
[2020-12-28 09:08] LABS: EOSINOPHIL 1 % (0-4); HYPOCHROMIA 3+; LYMPHOCYTE 21 % (20.0-51.0); METAMYELOCYTE 3 % (0-0); NEUTROPHILS 75 % (42.0-75.2); PLATELET ESTIMATE NORMAL (NORMAL)
[2020-12-28 09:09] LABS: MICROCYTOSIS 1+
--- NOTE | 2020-12-28 10:35 | NUR ---
Patient continues to work slowly on her breakfast. Dr.Doering moss. Hospitalist saw patient, plan of care reviewed
[2020-12-28 11:21] VITALS: BP 108/68; PULSE 109; TEMP 98.3
--- NOTE | 2020-12-28 13:00 | NUR ---
Patient lunch ordered. Elevated blood sugar, insulin per orders. Discussed with patient may be due to juice she is receiving for k+ replacement.
[2020-12-28 16:02] VITALS: BP 112/61; PULSE 106; TEMP 98.2
--- NOTE | 2020-12-28 17:35 | NUR ---
Patient again offered a shower, she reports to tired. Roxicodone for pain. Pain remains the same. Will monitor.
--- NOTE | 2020-12-28 19:27 | NUR ---
REPORT RECEIVED FROM NURSE HANEY. PATIENT RESTING IN BED, EATING DINER SLOWLY, STARTED ON FULL LIQUIDS TODAY. DENIES NAUSEA/VOMITING AT THIS TIME WILL CONTINUE TO MONITOR.
[2020-12-28 20:07] VITALS: BP 114/70; PULSE 110; TEMP 99.2
[2020-12-28 23:50] VITALS: BP 103/66; PULSE 10; PULSE 101; TEMP 98.1
[2020-12-29 04:48] VITALS: BP 108/70; PULSE 92; TEMP 97.9
[2020-12-29 06:54] LABS: MEAN CELL VOLUME 91 fl (80.0-100.0); MEAN CORPUSCULAR HGB CONC 31 g/dl (33.0-37.0); MEAN PLATELET VOLUME 9.8 fl (7.4-10.4); PLATELET COUNT 381 K/mm3 (130-400); RED BLOOD COUNT 2.91 M/mm3 (4.10-5.30); REDCELL DISTRIBUTION WIDTH-CV 17.3 % (11.5-14.5)
[2020-12-29 06:57] LABS: HEMATOCRIT 26.5 % (37.0-47.0); HEMOGLOBIN 8.1 g/dl (12.5-16.0); MEAN CORPUSCULAR HEMOGLOBIN 28 pg (27.0-31.0)
[2020-12-29 07:04] LABS: CALCIUM 8.3 mg/dL (8.4-10.2); CREATININE, serum 0.39 (0.52-1.25); POTASSIUM 3.6 mmol/L (3.4-5.0)
[2020-12-29 07:34] LABS: BASOPHIL 3 % (0-2); EOSINOPHIL 1 % (0-4); LYMPHOCYTE 19 % (20.0-51.0); METAMYELOCYTE 2 % (0-0); NEUTROPHILS 71 % (42.0-75.2); PLATELET ESTIMATE NORMAL (NORMAL)
[2020-12-29 07:35] LABS: ANISOCYTOSIS 1+; HYPOCHROMIA 3+
[2020-12-29 08:00] VITALS: BP 92/57; PULSE 95; TEMP 98
[2020-12-29] MEDS ORDERED: AMOXICILLIN 8751 TAB PO (08:46)
--- NOTE | 2020-12-29 08:49 | NUR ---
Patient sitting in bed, doing on line shopping. She has ordered breakfast. Patient is hopeful for discharge home today. Spoke with Jennifer in social work to assist with discharge planning.
[2020-12-29] MEDS ORDERED: LASIX 20MG TABL20 MG PO (08:51)
[2020-12-29] MEDS ORDERED: PREDNISONE20 MG PO (08:52)
[2020-12-29] MEDS ORDERED: ROXICODONE 55 MG/TAB PO (09:03)
[2020-12-29 11:58] VITALS: BP 109/68; PULSE 105; TEMP 98.8
--- NOTE | 2020-12-29 14:48 | NUR ---
Dental Specialist staffed with dietitian. The patient's G-tube fell out. She did well without it will not need it at discharge. GAY attended clinical rounds with the team. The patient chose [facility]. Referral faxed. GAY contacted [facility] and they can accept the patient for long term services. The patient to discharge home today, 12/29 with [facility], long term. Discharge orders faxed. There are no additional needs at this time.
--- NOTE | 2020-12-29 16:10 | NUR ---
Patient ready for discharge. Ogema to abdomen removed per orders from . steri strips placed. Patient tolerated well. We reviewed all discharge paperwork including medication list, new scripts sent to pharmacy and last dose take. Patient also made aware of discontinued medication, she was not happy about this, she reports she will be discussing with her neurologist these medication. All follow up appt scheduled & reviewed with patient. She has orders for home health & follow up labs. Patient wheeled out with all belongings, her friend taking her home. Denies questions or concerns.
== END 2020-12-29 18:16 | disposition home health service (06) | DRG 326 ==
LOC: SURG 18:00 → MEDICAL 18:36 → SURG 12-19 03:00 → ICU 12-20 16:20 → SURG 12-20 16:20 → ICU 12-20 16:21 → SURG 12-23 18:08 → ICU 12-23 18:08 → SURG 12-23 18:08
PROVIDERS: Family Medicine; Internal Medicine Pulmonary Disease; Physician Assistant; Student in an Organized Health Care Education/Training Program; Surgery; ADMIT Internal Medicine
PROC: 5A09457 Assistance with Respiratory Ventilation, 24-96 Consecutive Hours, Continuous Positive Airway Pressure (ICD-10-PCS; 2020-12-14)
PROC: 0DB78ZX Excision of Stomach, Pylorus, Via Natural or Artificial Opening Endoscopic, Diagnostic (ICD-10-PCS; 2020-12-14)
PROC: 0DB58ZX Excision of Esophagus, Via Natural or Artificial Opening Endoscopic, Diagnostic (ICD-10-PCS; 2020-12-14)
PROC: 0DBA8ZX Excision of Jejunum, Via Natural or Artificial Opening Endoscopic, Diagnostic (ICD-10-PCS; 2020-12-14)
PROC: 0DN84ZZ Release Small Intestine, Percutaneous Endoscopic Approach (ICD-10-PCS; 2020-12-15)
PROC: 0DN80ZZ Release Small Intestine, Open Approach (ICD-10-PCS; 2020-12-15)
PROC: 0DQV0ZZ Repair Mesentery, Open Approach (ICD-10-PCS; 2020-12-15)
PROC: 02HV33Z Insertion of Infusion Device into Superior Vena Cava, Percutaneous Approach (ICD-10-PCS; 2020-12-17)
PROC: 0DH60UZ Insertion of Feeding Device into Stomach, Open Approach (ICD-10-PCS; 2020-12-18)
PROC: 0DQV0ZZ Repair Mesentery, Open Approach (ICD-10-PCS; 2020-12-18)
PROC: 0BH17EZ Insertion of Endotracheal Airway into Trachea, Via Natural or Artificial Opening (ICD-10-PCS; principal; 2020-12-20)
PROC: 5A1945Z Respiratory Ventilation, 24-96 Consecutive Hours (ICD-10-PCS; 2020-12-20)
DX: K55.9 Vascular disorder of intestine, unspecified (principal); K28.4 Chronic or unspecified gastrojejunal ulcer with hemorrhage; E43 Unspecified severe protein-calorie malnutrition; J96.01 Acute respiratory failure with hypoxia; K56.2 Volvulus; E87.1 Hypo-osmolality and hyponatremia; J98.11 Atelectasis; D62 Acute posthemorrhagic anemia; K46.9 Unspecified abdominal hernia without obstruction or gangrene; K21.9 Gastro-esophageal reflux disease without esophagitis; J45.909 Unspecified asthma, uncomplicated; I10 Essential (primary) hypertension; E11.649 Type 2 diabetes mellitus with hypoglycemia without coma; I08.1 Rheumatic disorders of both mitral and tricuspid valves; F43.10 Post-traumatic stress disorder, unspecified; I95.9 Hypotension, unspecified; F32.9 Major depressive disorder, single episode, unspecified; F41.9 Anxiety disorder, unspecified; R00.0 Tachycardia, unspecified; D64.9 Anemia, unspecified; G40.909 Epilepsy, unspecified, not intractable, without status epilepticus; G43.909 Migraine, unspecified, not intractable, without status migrainosus; F17.210 Nicotine dependence, cigarettes, uncomplicated; R62.7 Adult failure to thrive; G47.00 Insomnia, unspecified; Z68.26 Body mass index [BMI] 26.0-26.9, adult; Z79.84 Long term (current) use of oral hypoglycemic drugs; Z98.84 Bariatric surgery status; Z88.6 Allergy status to analgesic agent; Z88.5 Allergy status to narcotic agent
CPT/HCPCS: 99223-AI; 99232-AI; 99233-AI; 99239; A4314; A9284; C1751; C9113; J0610; J1100; J1170; J1200; J1644; J1650; J1756; J1815; J1940; J2060; J2250; J2370; J2405; J2543; J2550; J2704; J2795; J2920; J2997; J3010; J3411; J3475; J3480; J7030; J7040; J7042; J7050; J7120; J7131; J7512; P9016; Q9967

== ENCOUNTER → 2021-06-23 | Outpatient (CLI) | payer MEDICARE, MEDICAID ==
[~2021-06-23] MED LIST changes: +AMOXICILLIN 8751 TAB PO; +KLONOPIN 0.5MG0.5 MG PO; +LASIX 20MG TABL20 MG PO; +PREDNISONE20 MG PO; +PROVIGIL 100MG100 MG PO; +ROXICODONE 55 MG/TAB PO; +SEROQUEL 1100 MG/TAB PO; +SPRAVATO NS
== END ==
LOC: COL.RAD 06-22 14:30
DX: K31.89 Other diseases of stomach and duodenum (principal); R19.35 Periumbilic abdominal rigidity; Z90.49 Acquired absence of other specified parts of digestive tract; Z98.84 Bariatric surgery status
CPT/HCPCS: Q9967

== ENCOUNTER → 2021-08-16 | Outpatient (CLI) | payer MEDICARE, MEDICAID | LOC: MC.RAD 09:14 | DX: N64.89 Other specified disorders of breast (principal) ==

== ENCOUNTER 2021-12-24 09:57 | Day surgery (SDC) | payer MEDICARE, MEDICAID ==
[2005-06-07 16:18] VITALS: BP 158/85
[~2021-12-24] VITALS: Ht 165.1 cm; Wt 61.1 kg
[2021-12-24 11:10] VITALS: BP 102/81; PULSE 85; TEMP 97.4
[2021-12-24] MEDS ORDERED: XANAX 0.5MG0.5 MG PO (11:34)
[2021-12-24] MEDS ORDERED: REMERON30 MG PO (11:39)
[2021-12-24] MEDS ORDERED: SEROQUEL 200MG200 MG PO (11:41)
[2021-12-24] MEDS ORDERED: HALDOL 5MG T5 MG/TAB PO (11:42)
[2021-12-24] MEDS ORDERED: QULIPTA30 MG PO (11:44)
[2021-12-24] MEDS ORDERED: PAMELOR 25MG25 MG PO (11:44)
[2021-12-24] MEDS ORDERED: DETROL LA4 PO (11:45)
[2021-12-24] MEDS ORDERED: PERIACTIN 4MG TA4 MG PO (11:45)
[2021-12-24] MEDS ORDERED: UBRELVY100 MG PO (11:46)
[2021-12-24 12:15] VITALS: BP 105/83; PULSE 84; TEMP 97
[2021-12-24 12:30] VITALS: BP 111/87; PULSE 77
[2021-12-24 12:45] VITALS: BP 112/81; PULSE 79
[2021-12-24 13:00] VITALS: BP 110/84; PULSE 78
--- NOTE | 2021-12-24 13:15 | NUR ---
1215 - PT arrived from procedure and was settled by an RN. PT provided with apple juice per request. Written report obtained. Call han is within reach if needed. 1230 - VSS. Call han remains within reach. 1245 - VSS. PT provided with buttered toast per request. 1300 - VSS. PT expressed desire to be discharged. Call han remains within reach.
--- NOTE | 2021-12-24 13:22 | NUR ---
IV discontinued. Catheter tip intact. Pressure bandage applied. NO redness or swelling noted. DC instructions and educational material reviewed with the PT, who verbalized understanding and signed the related paperwork. Call hna remains within reach if needed.
--- NOTE | 2021-12-24 13:30 | NUR ---
PT dismissed from endo via wheelchair to the PT entrence by a Tech. PT had DC packet and personal belonings and was transferred into the care of her brother, who is present to drive private car.
== END 2021-12-24 13:30 | disposition home or self-care (01) ==
LOC: SDCO 09:57
DX: D13.0 Benign neoplasm of esophagus (principal)
CPT/HCPCS: J2704; J7120

== ENCOUNTER → 2022-01-20 | Outpatient (CLI) | payer MEDICARE, MEDICAID ==
[~2022-01-20] MED LIST changes: +DETROL LA4 PO; +PAMELOR 25MG25 MG PO; +PERIACTIN 4MG TA4 MG PO; +QULIPTA30 MG PO; +REMERON30 MG PO; +SEROQUEL 200MG200 MG PO; +UBRELVY100 MG PO; +XANAX 0.5MG0.5 MG PO
== END ==
LOC: COL.RAD 13:39
DX: K45.8 Other specified abdominal hernia without obstruction or gangrene (principal); Z98.84 Bariatric surgery status
CPT/HCPCS: Q9967